=== PATIENT | male | born 1945 | race Caucasian/White ===

== ENCOUNTER → 2018-05-16 13:12 | Outpatient (POV) | payer MEDICARE, OTHER, SELFPAY | PROVIDERS: PCP Pediatrics; Visit Provider Specialist | DX: M62.81 Muscle weakness (generalized) (principal); E11.42 Type 2 diabetes mellitus with diabetic polyneuropathy | CPT/HCPCS: 95886; 95909 ==

== ENCOUNTER → 2018-11-24 14:02 | Outpatient (CLI) | payer MEDICARE, OTHER, SELFPAY ==
[2018-11-24 14:45] LABS: Basophils % 0.5 % (0.1-2.0); Eosinophils # 0.1 K/mm3 (0.0-0.4); Eosinophils % 2.2 % (0.1-12.0); Hematocrit 46.4 % (42.0-52.0); Hemoglobin 15.7 g/dL (14.1-18.0); Lymphocytes # 2.1 K/mm3 (0.7-4.5); Lymphocytes % 40.1 % (10-50); Mean Corpuscular HGB Conc 33.8 g/dL (31.8-35.4); Mean Corpuscular Hemoglobin 30.8 pg (27.0-31.2); Mean Corpuscular Volume 91.2 fl (80-94); Mean Platelet Volume 7.8 fl (7.4-10.4); Monocytes # 0.3 K/mm3 (0.1-1.0); Monocytes % 6.1 % (1.7-9.3); Neutrophils # 2.7 K/mm3 (1.8-7.8); Neutrophils % 51.1 % (37.0-80.0); Platelet Count 203 K/mm3 (142-424); Red Blood Count 5.08 M/mm3 (4.60-6.20); Red Cell Distribution Width 14.4 % (11.5-17.5); White Blood Count 5.3 K/mm3 (4.8-10.8)
[2018-11-24 15:26] LABS: Anion Gap 20.3 mEq/L (5-15); Blood Urea Nitrogen 28 mg/dL (7-18); Calcium 9.7 mg/dL (8.5-10.1); Carbon Dioxide 21 mmol/L (21.0-32.0); Chloride 105 mmol/L (98-107); Creatinine,Serum 1.24 mg/dL (0.70-1.30); Estimated Glomerular Filt Rate 57 ml/min (>60); GFR (African American) 69 ML/MIN (>60); Glucose 245 mg/dL (74-106); Potassium 4.3 mmoL/L (3.5-5.1); Sodium 142 mmol/L (136-145)
== END ==
PROVIDERS: Visit Provider Otolaryngology
DX: Z01.818 Encounter for other preprocedural examination (principal); L98.9 Disorder of the skin and subcutaneous tissue, unspecified
CPT/HCPCS: 36415; 80048; 85025; 93005

== ENCOUNTER 2018-12-09 06:04 | Day surgery (SDC) | payer MEDICARE, OTHER, SELFPAY ==
[2018-12-09 06:18] VITALS: BMI 33.7
[2018-12-09 06:19] VITALS: BP 151/62; PULSE 91; RESP 18; TEMP 36.6; O2SAT 94
[2018-12-09 06:44] LABS: POC Glucose,Bedside 148 (70-110)
--- NOTE | 2018-12-09 07:32 | P.PN_ITS ---
[facility] Anesthesia Checklist - Patient Identification Patient Identification: Arm Band, Verbal (Name & ) - Structural Data Admitted From: Home Planned Operative Procedure/s: excision lesion Consent for Planned Operative Procedure(s) Verified: Yes Verified Documents: History and Physical - NPO Status Verified Time NPO: 00:00 - Additional verifications Patient : No Anesthesia Reactions: No Hx Blood Transfusions: No Blood Transfusion Reaction: No Cephalosporin Allergy: No Previous Colonoscopy: Yes - Cardiovascular Assessment Heart Sounds: S1 & S2 Pulse Strength: Baseline Pulse Rhythm: Regular Peripheral Edema: No - Airway Assessment C-Spine Mobility Assessed: Yes TMJ Mobility Assessed: Yes Dentition: Good Dentition - Neurological Assessment Level of Consciousness: Awake, Alert, Appropriate Hx Seizures: No Numbness or tingling in extremities: No - Anesthesia Plan Anesthesia Risk discussed: Yes Anesthesia Plan: Verified ASA Class: III Anesthesia Type: MAC [facility] History I have reviewed the patient's past medical history: Yes Medical History: Reports:: Cancer (PROSTATE CANCER), Diabetes Mellitus Type 2, Hyperlipidemia, Hypertension Denies:: Diabetes Mellitus Type 1, Internal Pacemaker, MRSA, Seizures *Have you ever received a pneumonia vaccine?: Yes *Have you received a flu vaccine this season?: Yes Other Medical History: Denies: Blood Transfusion Reaction Other Surgeries: Yes: No Previous Surgery, Open Heart Surgery, Other. No: Pacemaker Amputation: No Fractures: No - *Social History Educational Level: Completed High School Smoking Status: Former smoker #Yrs smoked (if former smoker): 2 Smoking End Date: 1966 Alcohol Intake: never Alcohol Intake Frequency:: other *Occupational Status:: retired Housing: house Household Members: spouse *Travel in the last 8 weeks: None - Psychiatric History Expresses thoughts of harming self/others: None Suicide Plan Description: No Plan Family Hx:: Cancer
[2018-12-09 08:38] VITALS: BP 118/58; PULSE 73; RESP 18; TEMP 36.1; O2SAT 96
[2018-12-09 08:53] VITALS: BP 112/57; PULSE 66; RESP 18; TEMP 36.1; O2SAT 94
[2018-12-09 09:08] VITALS: BP 108/62; PULSE 70; RESP 18; TEMP 36.1; O2SAT 95
[2018-12-09 09:22] VITALS: BP 114/57; PULSE 70; RESP 18; TEMP 36.1; O2SAT 95
--- NOTE | 2018-12-09 09:25 | HMH.OPNOTE ---
Date of procedure: 12/09/18 Pre-op Diagnosis:: Malignant neoplasm right upper neck 4.5 cm Post-op Diagnosis:: same Procedure performed:: Excision of malignant neoplasm skin right upper neck with the tissue arrangement geometric plastic repair Surgeon:: Pepito Beebe MD DISTRICT DIRECTOR:: Darius Jimenez Anesthesia: MAC Estimated blood loss (mL): 3 Operative findings:: same Operative note:: The right neck was prepped and draped, the eyes were protected with Steri-Strips. The perilesional area was infiltrated with 5 cc of 2% lidocaine containing epinephrine. The lesion was marked out and the markup measured 4.5 cm in length. The edwin-out was incised and the lesion was excised and submitted. Bleeding was stopped with bipolar cautery. Bloodloss was less than 10 cc. The lesion extended deep into the subcutaneous layer, anterior and posterior incisions were made and a tissue rearrangement geometric plastic repair was done with interrupted 4-0 nylon sutures. Dermabond dressing was applied and the patient was sent to recovery in good general condition. Condition: stable Disposition: PACU Complications:: none
--- NOTE | 2018-12-09 09:29 | P.OP_ITS ---
Date of procedure: 12/09/18 Pre-op Diagnosis:: Malignant neoplasm right upper neck 4.5 cm Post-op Diagnosis:: same Procedure performed:: Excision of malignant neoplasm skin right upper neck with the tissue arrangement geometric plastic repair Surgeon:: Pepito Beebe MD MEDICAL RECORDS SPECIALIST:: Darius Jimenez Anesthesia: MAC Estimated blood loss (mL): 3 Operative findings:: same Operative note:: The right neck was prepped and draped, the eyes were protected with Steri- Strips. The perilesional area was infiltrated with 5 cc of 2% lidocaine containing epinephrine. The lesion was marked out and the markup measured 4.5 cm in length. The edwin-out was incised and the lesion was excised and submitted. Bleeding was stopped with bipolar cautery. Bloodloss was less than 10 cc. The lesion extended deep into the subcutaneous layer, anterior and posterior incisions were made and a tissue rearrangement geometric plastic repair was done with interrupted 4-0 nylon sutures. Dermabond dressing was applied and the patient was sent to recovery in good general condition. Condition: stable Disposition: PACU Complications:: none
== END 2018-12-09 09:22 | disposition home or self-care (01) ==
LOC: OR 06:06
PROVIDERS: PCP Pediatrics; Visit Provider Otolaryngology
DX: L85.8 Other specified epidermal thickening; L82.1 Other seborrheic keratosis; E11.9 Type 2 diabetes mellitus without complications
CPT/HCPCS: 14040; 82962; 88305; 96374; 96375

== ENCOUNTER 2020-03-02 07:11 | Observation (INO) | payer MEDICARE, SELFPAY ==
[2020-03-02] VITALS (23 sets, daily range): BP systolic 110–165; BP diastolic 60–86; PULSE 85–129; RESP 16–20; TEMP 36.2–37.8; O2SAT 90–98; BMI 33.5; BMI 33.6
[2020-03-02 07:42] LABS: Basophils % 0.2 % (0.1-2.0); Eosinophils # 0.1 K/mm3 (0.0-0.4); Eosinophils % 0.9 % (0.1-12.0); Hematocrit 43.7 % (42.0-52.0); Hemoglobin 15.2 g/dL (14.1-18.0); Lymphocytes # 1.6 K/mm3 (0.7-4.5); Mean Corpuscular HGB Conc 34.7 g/dL (31.8-35.4); Mean Corpuscular Hemoglobin 31.7 pg (27.0-31.2); Mean Corpuscular Volume 91.4 fl (80-94); Mean Platelet Volume 7.9 fl (7.4-10.4); Monocytes # 0.6 K/mm3 (0.1-1.0); Monocytes % 4.9 % (1.7-9.3); Neutrophils # 9.8 K/mm3 (1.8-7.8); Platelet Count 196 K/mm3 (142-424); Red Blood Count 4.78 M/mm3 (4.60-6.20); Red Cell Distribution Width 14.2 % (11.5-17.5); White Blood Count 12.1 K/mm3 (4.8-10.8)
--- NOTE | 2020-03-02 07:45 | HMH.EDNVD ---
ED Disposition Clinical Impression: Right foot drop, Obesity (BMI 30.0-34.9), S/P CABG (coronary artery bypass graft) Acute appendicitis Qualifiers: Acute appendicitis type: unspecified acute appendicitis type Qualified Code(s): K35.80 - Unspecified acute appendicitis Diabetes, polyneuropathy Qualifiers: Diabetes mellitus type: type 2 Qualified Code(s): E11.42 - Type 2 diabetes mellitus with diabetic polyneuropathy Disposition: Admitted As Inpatient Condition on Discharge: Good Instructions: DI for Acute Abdomen Referrals: Gaudencio Aiken [Primary Care Provider] - - Critical Care Critical Care Time: No Attestation: On 03/02/20, the high probability of a clinically significant, sudden or life threatening deterioration of the following system(s) required my full and direct attention, intervention and personal management. The time I documented below is in addition to time spent performing reported procedures but includes the following listed in this critical care notation. Medical Decision Making - Medical Records Medical records reviewed: Yes: I reviewed the patient's medical records. - Fredis Inquiry Pt receiving controlled substance: No Vital Signs: 03/02/20 07:12 03/02/20 07:49 Temperature 99.5 F Temperature Source Oral Pulse Rate [Left Radial] 97 H 85 Respiratory Rate 16 Blood Pressure [Right Arm] 156/74 H 165/80 H Blood Pressure Mean [Right Arm] 101 108 Blood Pressure Source [Right Arm] Automatic Cuff Blood Pressure Position [Right Arm] Sitting Sitting 02 Sat by Pulse Oximetry 97 94 L Oxygen Delivery Method Room Air Room Air - Lab Data Lab Results 03/02/20 07:33: WBC 12.1 H, RBC 4.78, Hgb 15.2, Hct 43.7, MCV 91.4, MCH 31.7 H, MCHC 34.7, RDW 14.2, Plt Count 196, MPV 7.9, Neut % (Auto) 81.0 H, Lymph % (Auto) 13.0, [place] % (Auto) 4.9, Eos % (Auto) 0.9, Baso % (Auto) 0.2, Neut # (Auto) 9.8 H, Lymph # (Auto) 1.6, [place] # (Auto) 0.6, Eos # (Auto) 0.1, Baso # (Auto) 0.0 03/02/20 07:33: Sodium 139, Potassium 3.9, Chloride 101, Carbon Dioxide 22, Anion Gap 19.9 H, BUN 19, Creatinine 1.10, Estimated Creat Clear 80, Estimated GFR 66, Est GFR ( Amer) 79, Glucose 161 H, Calcium 9.8, Total Bilirubin 0.6, AST 31, ALT 41, Alkaline Phosphatase 61, Total Protein 8.1, Albumin 4.8, Globulin 3.3 H, Albumin/Globulin Ratio 1.5 03/02/20 07:33: Amylase 162 H, Lipase 61 03/02/20 07:43: Urine Color Dk yellow, Urine Appearance Clear, Urine pH 7.0, Ur Specific [place] 1.020, Urine Protein 1+, Urine Glucose (UA) Negative, Urine Ketones Trace, Urine Blood Negative, Urine Nitrate Negative, Urine Bilirubin Negative, Urine Urobilinogen 1.0, Ur Leukocyte Esterase Negative, Urine RBC 3-5, Urine WBC 3-5, Ur Squamous Epith Cells Occasional, Urine Bacteria Trace, Urine Mucus Trace Result diagrams: 03/02/20 07:33 03/02/20 07:33 Orders (Tests/Meds): ED MEDICATIONS Generic Name Dose Route Start Last Admin Trade Name Freq PRN Reason Stop Dose Admin Sodium Chloride 1,000 mls @ 999 mls/hr 03/02/20 07:30 03/02/20 07:32 Sod Chlor 0.9% 1000ml Bag IV 03/02/20 08:30 999 mls/hr .Q1H1M TALIA Administration ORDERS Category Date Time Status CT abdomen pelvis wo con Stat Cat Scan 03/02/20 07:47 Taken - CT Data CT Scan: Abdomen, Pelvis Time Received: 08:[address] Reviewed: Yes: I have viewed the radiologist's interpretation Preliminary Findings: Abnormal (appendicitis) Nausea/Vomiting/Diarrhea HPI - General Chief complaint: Abdominal Pain Stated complaint: Pain in [place] stomach\ Time Seen by Provider: 03/02/20 07:30 Mode of Arrival: Ambulatory Source of Information: Patient, Spouse, Medical Record Limitations: No Limitations Description of Symptoms (Recalled from ER Triage Doc. by RN): to ed per pvt car with c/o rlq abd pain x 3 weeks became worse lastnight. denies nausea, vomiting, fever states pain worse with movement. pt states he had abd xrays several days ago . - History of Present Illness HPI Narrati
[2020-03-02 07:46] LABS: Microscopic, Urine URINE MICROSCOPIC (MICROSCOPIC)
--- NOTE | 2020-03-02 07:47 | CT_ITS ---
Procedure: CT ABDOMEN PELVIS WO CON Patient Age:74Y CLINICAL INDICATION: ABD PAIN right-sided lower abdominal pain becoming severe since last night COMPARISON: No exams were available for comparison TECHNIQUE: No IV contrast. No oral contrast Helical axial images obtained with sagittal and coronal reformats. All CT scans at the facility use one or more dose reduction, viz: automated exposure control, ma/kV adjustment per patient size (including targeted exams where dose is matched to indication, i.e. head), or iterative reconstruction technique. FINDINGS: Mild dependent atelectasis lung bases the mild chronic changes posterior lung bases . Upper normal wall thickness distal esophagus with small sliding hiatal hernia. Abdomen pelvis : lack of oral and IV contrast decrease sensitivity somewhat Liver,spleen, adrenals unremarkable. Cholelithiasis noted: 6 mm stone dependent portion the gallbladder (axial image 34) question other very tiny gravel-like stones adjacent. No gallbladder wall thickening nor inflammation.Common duct normal this is the the the the the is Pancreas satisfactory: (Note elev amylase lab but pancreas unremarkable by ct) tract: Kidneys/ureter. No hydronephrosis or current obstruction Left kidney: Nonobstructing calculus mid portion left kidney measuring up to 7 mm x 4 mm. Stranding surrounding both kidneys most likely chronic in nature. Ureters unremarkable. Urinary bladder wall thickening most likely due to its markedly contracted state. No significant free fluid at pelvic basin. No pelvic nor inguinal nor retroperitoneal adenopathy note small fat containing hernia right. No bowel Loops no definite free air in the abdomen. GI tract. : ACUTE APPENDICITIS: dilated appendix measures 13 mm diameter. Surrounding Carine appendiceal hazy stranding and inflammation throughout periappendiceal fat. There is a 7.5 mm appendiculith at the base of the appendix where it meets the cecum; which could be a contributor to the the current acute appendicitis No focal abscess. No discrete free air. No prep perforation. Small inguinal hernia on right noted and questionably developing left. No bowel loops associated either side Lymph nodes: No enlarged lymph nodes apparent. Vasculature: No evidence of abdominal aortic aneurysm. Diffuse calcified abdominal aorta Bones: No acute fracture developing degenerative changes lower spine IMPRESSION: 1.. ACUTE APPENDICITIS Dilated appendix with periappendiceal stranding and inflammation . Associated appendicolith. No abscess; no perforation. 2. Incidental other observations: . Cholelithiasis . Left renal calculus, nonobstructive . Sigmoid diverticulosis ; no diverticulitis . Small fat containing inguinal hernia on right, Dictated by: Jasper Koch MD 03/02/2020 10:51 Electronically signed by Jasper Koch MD in [place] 03/02/2020 10:51
[2020-03-02 07:49] LABS: Chloride 101 mmol/L (98-107); Potassium 3.9 mmoL/L (3.5-5.1); Sodium 139 mmol/L (136-145)
[2020-03-02 07:49] LABS: Appearance,Urine CLEAR (Clear); Blood, Urine Negative (Negative); Color,Urine DK YELLOW (Yellow); Glucose,Urine (UA) Negative (Negative); Ketones,Urine TRACE (Negative); Leukocyte Esterase,Urine Negative (Negative); Nitrate,Urine Negative (Negative); Protein,Urine 1+ (Negative)
[2020-03-02 07:50] LABS: Bilirubin,Urine Negative (Negative)
[2020-03-02 07:51] LABS: Amylase 162 U/L (30-110); Lipase 61 U/L (23-300)
--- NOTE | 2020-03-02 07:51 | PC.NURSE ---
NORMAL SALINE RATE DECREASED TO 100CC/HR
[2020-03-02 07:52] LABS: Alanine Aminotransferase 41 U/L (12-78); Albumin Level 4.8 g/dl (3.5-5.0); Albumin/Globulin Ratio 1.5 (1.1-1.8); Alkaline Phosphatase 61 U/L (38-126); Anion Gap 19.9 mEq/L (5-15); Aspartate Amino Transferase 31 U/L (17-59); Bilirubin,Total 0.6 mg/dl (0.2-1.3); Blood Urea Nitrogen 19 mg/dl (9-20); Calcium 9.8 mg/dl (8.4-10.2); Carbon Dioxide 22 mmol/L (22.0-30.0); Creatinine Clearance Estimated 80 mL/min (50-200); Estimated Glomerular Filt Rate 66 ml/min (>60); GFR (African American) 79 ML/MIN (>60); Globulin 3.3 g/dL (1.3-3.2); Glucose 161 mg/dl (74-100); Total Protein,Serum 8.1 g/dl (6.3-8.2)
--- NOTE | 2020-03-02 07:59 | PC.NURSE ---
Pt to rad.
[2020-03-02 08:16] LABS: Bacteria,Urine Trace /lpf; Mucus,Urine Trace /lpf; Squamous Epithelial Cell,Urine Occasional #/hpf (0-5)
--- NOTE | 2020-03-02 08:29 | PC.NURSE ---
Dr Koch calling to inform ER MD of CT results.
--- NOTE | 2020-03-02 08:40 | PC.NURSE ---
oil recovery unit operator paging dr. nelson who is injection press operator for surger
--- NOTE | 2020-03-02 08:49 | XR_ITS ---
PROCEDURE: XR CHEST PORTABLE CLINICAL INDICATION: pre-op Heart disease COMPARISON: No exams were available for comparison FINDINGS: Prior CABG with mild cardiomegaly without CHF. There are low lung volumes. Clear lungs. No acute bony findings. IMPRESSION: Cardiomegaly, prior CABG Dictated by: Bon Hernandez MD 03/02/2020 09:35 Electronically signed by Bon Hernandez MD in [place] 03/02/2020 09:35
--- NOTE | 2020-03-02 08:52 | ECG_ITS ---
APPROVED REPORT Exam: Resting ECG HR:91 bpm ECG Measurements Heart Rate 91 AXES NJ 162 P 24 QRSd 90 QRS -9 QT 334 T 145 QTc 410 <Conclusion> Sinus rhythm with occasional premature ventricular complexes Left ventricular hypertrophy with repolarization abnormality Abnormal ECG Electronically signed by : Darius Sandoval, 03/02/2020 16:51:37
--- NOTE | 2020-03-02 08:55 | PC.NURSE ---
rad at bedside
--- NOTE | 2020-03-02 08:55 | PC.NURSE ---
Surgeon probation manager returned call
--- NOTE | 2020-03-02 08:56 | PC.NURSE ---
rad at BS for portable chest xray
--- NOTE | 2020-03-02 08:58 | PC.NURSE ---
ZIYAD TEAGUE spoke with Dr Chapin who is networks software consultant for surgery, states to give pt Invanz 1g IV now and he will plan to do surgery at 1030-11.
--- NOTE | 2020-03-02 09:16 | PC.NURSE ---
Per Dr Altamirano's discussion with surgeon showroom salesperson surgery will be around 10:30 or 11 this date.
--- NOTE | 2020-03-02 09:16 | PC.NURSE ---
Dr Esteves contacted in reference to possible surgery. per Dr Esteves tentatively plan for surgery between 11-1130am. OR team Curtis lamb Shellie, and Ingrid returned calls at 0914 and 0915
--- NOTE | 2020-03-02 09:16 | HMH.HP ---
*Admission Date: 03/02/20 *Chief complaint: abd pain *History of present illness: this pt presented to the ed with progressive rt lower abd pain since midnight with nausea and abd distention- no fever or vomiting and no cough - no exposure to covid 19- hx of diabetes and cad with prev cabg but no recent angina - [facility] History I have reviewed the patient's past medical history: Yes Medical History: Reports:: Cancer, Diabetes Mellitus Type 2, Hyperlipidemia, Hypertension Denies:: Diabetes Mellitus Type 1, Internal Pacemaker, MRSA, Seizures *Have you ever received a pneumonia vaccine?: Yes *Have you received a flu vaccine this season?: Yes Other Medical History: Denies: Blood Transfusion Reaction Other Surgeries: Yes: No Previous Surgery, CABG (4 vessel bypass ), Cardiac Surgery, Colonoscopy, Open Heart Surgery, Other (prostate surgery, and a bipass). No: Pacemaker Amputation: No Fractures: No - *Social History Smoking Status: Former smoker #Yrs smoked (if former smoker): 2 Alcohol Intake: never Alcohol Intake Frequency:: other Substance Use Type: denies use *Occupational Status:: other Housing: other Household Members: other *Travel in the last 8 weeks: None Family Hx:: Cancer (prostate cancer ), Hypertension, Hyperlipidemia, Diabetes Review of Systems - Review of Systems Review of systems:: pertinent systems reviewed and negative unless documented below - Constitutional Denies fever(s) - Eyes Denies change in vision - ENT Reports dry mouth, Denies sore throat - *Cardiovascular Denies chest pain at rest, Denies shortness of breath - *Respiratory Denies cough - *Gastrointestinal Reports abdominal pain, Reports nausea - *Genitourinary Denies painful urination - *Musculoskeletal Denies joint pain - Integumentary/Breasts Denies rash - *Neurologic Denies localized weakness, Denies seizure-like activity - Psychiatric Denies anxiety Meds Home Medications Medication Instructions Recorded Confirmed Type aspirin 81 mg tablet,delayed 81 mg PO DAILY 04/11/18 03/02/20 History release gemfibrozil 600 mg tablet 600 mg PO BID 04/11/18 03/02/20 History imipramine HCl 25 mg tablet 25 mg PO QHS 04/11/18 03/02/20 History metoprolol tartrate 100 mg tablet 100 mg PO BID 04/11/18 03/02/20 History omeprazole 40 mg capsule,delayed 40 mg PO DAILY 04/11/18 03/02/20 History release pravastatin 40 mg tablet 40 mg PO DAILY 04/11/18 03/02/20 History albuterol sulfate 90 mcg/actuation 1 puff INHALATION NEEDED PRN 06/20/18 03/02/20 History aerosol inhaler budesonide-formoterol HFA 160 2 puff INHALATION DAILY 11/24/18 03/02/20 History mcg-4.5 mcg/actuation aerosol inhaler glipizide 5 mg tablet 5 mg PO BID 11/24/18 03/02/20 History linaclotide 145 mcg capsule 145 mcg PO DAILY 11/24/18 03/02/20 History loratadine 10 mg capsule 10 mg PO DAILY 11/24/18 03/02/20 History losartan 25 mg tablet 25 mg PO DAILY 11/24/18 03/02/20 History C,E,Zinc,Copper 11/Rtxqu2j/Lut 1 tab PO DAILY 12/09/18 03/02/20 History [Ocuvite Adult 50 Plus Softgel] Cholecalciferol (Vitamin D3) 400 unit PO DAILY 12/09/18 03/02/20 History [Vitamin D-400] Multivitamin [Multivitamins] 1 each PO DAILY 12/09/18 03/02/20 History metformin 750 mg tablet,extended 1,000 mg PO BID tab 01/12/19 03/02/20 History release 24 hr nifedipine 60 mg tablet,extended 60 mg PO BID #60 tab 04/21/19 03/02/20 Rx release Allergies Allergy/AdvReac Type Severity Reaction Status Date / Time No Known Allergies Allergy Verified 04/13/19 11:06 Exam Vital signs and Labs for Last 24 Hours: Temp Pulse Resp BP Pulse Ox 99.5 F 94 H 16 148/67 H 94 L 03/02/20 07:12 03/02/20 09:15 03/02/20 07:12 03/02/20 09:15 03/02/20 09:15 Laboratory Results - last 24 hr 03/02/20 07:33: WBC 12.1 H, RBC 4.78, Hgb 15.2, Hct 43.7, MCV 91.4, MCH 31.7 H, MCHC 34.7, RDW 14.2, Plt Count 196, MPV 7.9, Neut % (Auto) 81.0 H, Lymph % (Auto) 13.0, [place] % (Auto
--- NOTE | 2020-03-02 09:16 | PC.NURSE ---
ATTEMPTED TO CALL REPORT TO FLOOR NURSE STATES SHE IS BUSY WITH AN PT AND ASKED IF SHE COULD CALL BACK.
--- NOTE | 2020-03-02 09:27 | PC.NURSE ---
DR. SORENSEN REQUESTED IV ANTIBIOTICS NOW.
--- NOTE | 2020-03-02 09:27 | PC.NURSE ---
REPORT CALLED TO GABY MORELOS
[2020-03-02 09:45] LABS: Coronavirus 19 IgG Antibody Negative (Negative); Coronavirus 19 IgM Antibody Negative (Negative)
[2020-03-02 11:40] LABS: POC Glucose,Bedside 130 (70-110)
--- NOTE | 2020-03-02 12:06 | HMH.GSCON ---
*Admission Date: 03/02/20 *Reason for consult:: Right lower quadrant abdominal pain. Appendicitis. *History of present illness: Mr. Pereira is a 74-year-old male that presents to [facility] with complaints of right lower quadrant abdominal pain for approximately 12 hours. Sudden onset. No nausea or emesis. No fever or chills. No hematochezia or melena. Pain has remained in the right lower quadrant without radiation. Persistent. Intense. No other significant complaints. CT imaging completed as part of the [facility] ED evaluation. Findings consistent with appendicitis. Admitted to floor with known history of diabetes mellitus and previous coronary artery disease. Review of Systems - Constitutional Reports fatigue - *Respiratory Reports shortness of breath with activity - *Gastrointestinal Reports abdominal pain - *Genitourinary Reports difficulty urinating - *Neurologic Denies localized weakness, Denies seizure-like activity [facility] History I have reviewed the patient's past medical history: Yes Medical History: Reports:: Cancer, Coronary Artery Disease, Diabetes Mellitus Type 2, Hyperlipidemia, Hypertension Denies:: Diabetes Mellitus Type 1, Internal Pacemaker, MRSA, Seizures *Have you ever received a pneumonia vaccine?: Yes *Have you received a flu vaccine this season?: Yes Other Medical History: Reports: Radiation Therapy. Denies: Blood Transfusion Reaction Other Surgeries: Yes: No Previous Surgery, CABG (4 vessel bypass ), Cancer Surgery, Cardiac Surgery, Colonoscopy, Open Heart Surgery, Other (prostate surgery, and a bipass). No: Pacemaker Amputation: No Fractures: No - *Social History Smoking Status: Former smoker #Yrs smoked (if former smoker): 2 Alcohol Intake: never Alcohol Intake Frequency:: other Substance Use Type: denies use *Occupational Status:: disabled Housing: other Household Members: other *Travel in the last 8 weeks: None Family Hx:: Cancer (prostate cancer ), Hypertension, Hyperlipidemia, Diabetes Meds Home Medications Medication Instructions Recorded Confirmed Type aspirin 81 mg tablet,delayed 81 mg PO DAILY 04/11/18 03/02/20 History release gemfibrozil 600 mg tablet 600 mg PO BID 04/11/18 03/02/20 History imipramine HCl 25 mg tablet 25 mg PO QHS 04/11/18 03/02/20 History metoprolol tartrate 100 mg tablet 100 mg PO BID 04/11/18 03/02/20 History omeprazole 40 mg capsule,delayed 40 mg PO DAILY 04/11/18 03/02/20 History release pravastatin 40 mg tablet 40 mg PO DAILY 04/11/18 03/02/20 History albuterol sulfate 90 mcg/actuation 1 puff INHALATION NEEDED PRN 06/20/18 03/02/20 History aerosol inhaler budesonide-formoterol HFA 160 2 puff INHALATION DAILY 11/24/18 03/02/20 History mcg-4.5 mcg/actuation aerosol inhaler glipizide 5 mg tablet 5 mg PO BID 11/24/18 03/02/20 History losartan 25 mg tablet 25 mg PO DAILY 11/24/18 03/02/20 History C,E,Zinc,Copper 11/Ncnoq5r/Lut 1 tab PO DAILY 12/09/18 03/02/20 History [Ocuvite Adult 50 Plus Softgel] Cholecalciferol (Vitamin D3) 400 unit PO DAILY 12/09/18 03/02/20 History [Vitamin D-400] Multivitamin [Multivitamins] 1 each PO DAILY 12/09/18 03/02/20 History metformin 750 mg tablet,extended 1,000 mg PO BID tab 01/12/19 03/02/20 History release 24 hr nifedipine 60 mg tablet,extended 60 mg PO BID #60 tab 04/21/19 03/02/20 Rx release Famotidine 40 mg PO DAILY 03/02/20 03/02/20 History Allergies Allergy/AdvReac Type Severity Reaction Status Date / Time No Known Allergies Allergy Verified 04/13/19 11:06 Exam Vital signs and Labs for Last 24 Hours: Temp Pulse Resp BP Pulse Ox 99 F 88 18 132/74 92 L 03/02/20 10:46 03/02/20 10:46 03/02/20 10:46 03/02/20 10:46 03/02/20 10:02 Laboratory Results - last 24 hr 03/02/20 07:33: WBC 12.1 H, RBC 4.78, Hgb 15.2, Hct 43.7, MCV 91.4, MCH 31.7 H, MCHC 34.7, RDW 14.2, Plt Count 196, MPV 7.9, Neut % (Auto) 81.0 H, Lymph %
--- NOTE | 2020-03-02 13:29 | HMH.OPNOTE ---
Date of procedure: 03/02/20 Pre-op Diagnosis:: Acute appendicitis. Post-op Diagnosis:: Acute appendicitis. Procedure performed:: Laparoscopic appendectomy. Surgeon:: Leonid Esteves MD PHARMACEUTICAL COMPOUNDING SUPERVISOR:: Curtis Reeves Anesthesia: GETA Estimated blood loss (mL): 0 Operative findings:: Acutely inflamed appendix. Operative note:: Indications: Mr. Pereira is a 74-year-old male that presents to [facility] with complaints of right lower quadrant abdominal pain. Clinical examination and CT imaging consistent with acute appendicitis. No evidence of rupture. Scheduled for laparoscopic appendectomy. All risks benefits goals and alternatives were discussed with Mr. Pereira. Patient agreed to above-stated procedures. Findings: Acutely inflamed appendix. Perforation at the mid appendix with minimal contamination. Details of procedure: Patient was prepped identified. Consent obtained. Patient brought to the operating room. Transferred to the operating room table. General endotracheal anesthesia was administered. Abdomen was prepped and draped standard surgical fashion. Midline incision was made above the umbilicus. Abdominal cavity was entered without difficulty. A 12 mm trocar was placed in the supraumbilical position. Abdomen insufflated. Two 5mm trochars were placed in the lower abdomen. A dense band between the omentum and the anterior abdominal wall was taken down with harmonic scalpel. The appendix was visualized. Grasped. Perforation of the mid appendix was noted with minimal contamination. A window was created in the mesoappendix at the base of the appendix. The appendix was then divided at its base with an Endo ADAM stapler. Mesentery was divided with harmonic scalpel. Appendix delivered to an Endobag. Retrieved through the supraumbilical port site. Right lower quadrant was irrigated. No evidence of bleeding. No evidence of staple line dehiscence. This completed procedure. Patient tolerated well. Patient drainage the postanesthetic area without surgical or anesthetic complication. Specimens as above. Complications none. Condition: stable Disposition: PACU Complications:: None.
--- NOTE | 2020-03-02 13:30 | HMH.ANESCL ---
[facility] Anesthesia Checklist - Patient Identification Patient Identification: Arm Band, Verbal (Name & ) - Structural Data Admitted From: Inpatient Planned Operative Procedure/s: Laparoscopic appendectomy Consent for Planned Operative Procedure(s) Verified: Yes Verified Documents: Surgical Consent, History and Physical - NPO Status Verified Time NPO: 00:00 - Chart Verification Results Verified: CBC, BMP - Additional verifications Anesthesia Reactions: No Hx Blood Transfusions: No Blood Transfusion Reaction: No - Airway Assessment C-Spine Mobility Assessed: Yes (Limited neck ROM, thick neck, MP 3, TMD 3) TMJ Mobility Assessed: Yes Dentition: Poor Dentition (missing teeth) - Neurological Assessment Level of Consciousness: Awake, Alert, Appropriate, Follows Commands Hx Seizures: No Numbness or tingling in extremities: Yes (Neuropathy post CABG) - Anesthesia Plan Anesthesia Risk discussed: Yes Anesthesia Plan: Verified ASA Class: III (Emergent) Anesthesia Type: General [facility] History I have reviewed the patient's past medical history: Yes Medical History: Reports:: Cancer, Coronary Artery Disease, Diabetes Mellitus Type 2, Hyperlipidemia, Hypertension Denies:: Diabetes Mellitus Type 1, Internal Pacemaker, MRSA, Seizures *Have you ever received a pneumonia vaccine?: Yes *Have you received a flu vaccine this season?: Yes Other Medical History: Reports: Radiation Therapy. Denies: Blood Transfusion Reaction Anesthesia experience/problems:: Difficulty oxygenating post anesthesia S/P CABG (ventilator for 9 days) Other Surgeries: Yes: CABG (4 vessel bypass ), Cancer Surgery, Cardiac Surgery, Colonoscopy, Open Heart Surgery, Other (prostate surgery, and a bipass). No: Pacemaker Amputation: No Fractures: No - *Social History #Yrs smoked (if former smoker): 2 Alcohol Intake: never Alcohol Intake Frequency:: other Substance Use Type: denies use *Occupational Status:: disabled Housing: other Household Members: other *Travel in the last 8 weeks: None Family Hx:: Cancer (prostate cancer ), Hypertension, Hyperlipidemia, Diabetes
--- NOTE | 2020-03-02 13:38 | HMH.ANESI ---
[facility] Anesthesia Record Part I Intake, IV Amount: 1,000 Estimated blood loss (mL): 20 Urine output (mL): 100 Blood Products used (#): none Blood Pressure: 145/76 SaO2: 94 Pulse Rate: 96 Respiratory Rate: 18 Temperature: 97.1 F Patient is:: Drowsy, Mask O2, Stable Stable to PACU at:: 13:25
[2020-03-02 14:18] LABS: Microscopic,Cath URINE MICROSCOPIC (MICROSCOPIC)
[2020-03-02 14:20] LABS: Appearance,Urine/Cath CLEAR (Clear); Bilirubin,Cath Negative (Negative); Blood, Urine/Cath 1+ (Negative); Color,Urine/Cath YELLOW (Yellow); Glucose,Urine/Cath (UA) Negative (Negative); Ketones,Urine/Cath Negative (Negative); Leukocyte Esterase,Cath Negative (Negative); Nitrate,Cath Negative (Negative); PH,Urine/Cath 7.5 (5.0-8.5); Protein,Urine/Cath TRACE (Negative); Urobilinogen,Cath 0.2 EU/dl (0.2)
[2020-03-02 14:30] LABS: Bacteria,Urine/Cath TRACE /lpf
[2020-03-02 16:54] LABS: POC Glucose,Bedside 207 (70-110)
--- NOTE | 2020-03-02 17:29 | PC.NURSE ---
pt has done well since post op appy. pt came from pacu on 3L nc to get him to his baseline. pt now on ra with o2 sats ranging from 91-93%. pt ambulated up to chair. done well. pt educated on pain control and infection to incisions. pt has 3 incisions to abd, the top on has a small amount of sanguineous drainage, had when pt arrived to floor, no more noted. vss. will cont. to monitor.
--- NOTE | 2020-03-02 20:45 | PC.NURSE ---
placed pt on 1.5 lnc at this time. ra o2 sat noted at 88%. pt denies soa. no respiratory distress noted at this time. pt is now 92% on 1.5 lnc. will continue to monitor and attempt to wean back to ra if tolerated.
[2020-03-02 21:37] LABS: POC Glucose,Bedside 163 (70-110)
--- NOTE | 2020-03-02 23:25 | PC.NURSE ---
TITRATED O2 DOWN TO 1 LNC AT THIS TIME. 02 SATS NOTED AT 92% ON 1LNC. NO RESPIRATORY DISTRESS NOTED. DENIES SOA.
--- NOTE | 2020-03-03 00:29 | PC.NURSE ---
PT TOLERATED CLEAR LIQUID DIET WELL FOR DINNER. WILL ADVANCE TO FULL LIQUID DIET FOR BREAKFAST THIS AM. PT DENIES N/V/D.
[2020-03-03 01:00] VITALS: BP 133/68; PULSE 98; RESP 18; TEMP 36.9; O2SAT 92
--- NOTE | 2020-03-03 01:19 | PC.NURSE ---
CHANGED DSG TO UPPER MIDDLE INCISION DUE TO MODERATE SATURATION OF PAD AND TELFA. PT TOLERATED DSG CHANGE WELL WITH NO COMPLAINTS. INCISION NOTED C/D/I.
[2020-03-03 04:00] VITALS: BP 130/63; PULSE 104; RESP 30; TEMP 37.8; O2SAT 90
--- NOTE | 2020-03-03 04:04 | PC.NURSE ---
A&O X4. PT HAS INTERMITTENTLY RESTED WITH EYES CLOSED T/O SHIFT. PT INSISTED ON SLEEPING IN CHAIR AT BEDSIDE INSTEAD OF THE BED. REMAINED AT BEDSIDE T/O SHIFT. NO ACUTE CHANGES NOTED FROM PREVIOUS SHIFT. DSG CHANGED ON UPPER MIDDLE INCISION. MODERATE SEROSANG DRAINAGE NOTED. INCISION NOTED C/D/I. ABD NOTED DISTENDED. NO BM THUS FAR THIS SHIFT. PT C/O DAVIS AT BEGINNING OF SHIFT. THIS RN ADMIN TYLENOL PER OCT. UPON REASSESSMENT PT STATED ADEQUATE RELIEF. THIS AM, PT REPORTS WITH MOVEMENT FROM CHAIR HIS ABDOMEN IS VERY SORE. RATING PAIN 4/10 ON PAIN SCALE. ADMINISTERED TYLENOL PER OCT. WILL REASSESS IN 30 MINS POST ADMIN. PT NOW ON 1.5 LNC THIS AM. RA SAT NOTED AT 86% AND 90% ON 1 LNC. NO RESPIRATORY DISTRESS NOTED. TOLERATING 1.5 LNC WELL WITH O2 SATS NOTED AT 93% AT THIS TIME. USE OF URINAL AT BEDSIDE. URINE NOTED DARK YELLOW AND CLEAR IN COLOR. VSS WITH TACHYCARDIA NOTED. MD AWARE. PT STATES HIS BASELINE HR IS 90-100 AND THAT HIS PCP IS AWARE. REMAINS SAFE. REFUSED TEDS. CALL LIGHT WITHIN REACH. WILL CONTINUE TO MONITOR.
[2020-03-03 05:00] VITALS: BMI 33.8
[2020-03-03 05:27] LABS: POC Glucose,Bedside 140 (70-110)
[2020-03-03 07:11] LABS: Basophils % 0.1 % (0.1-2.0); Eosinophils % 0.2 % (0.1-12.0); Lymphocytes # 1.1 K/mm3 (0.7-4.5); Mean Corpuscular HGB Conc 34.8 g/dL (31.8-35.4); Mean Corpuscular Hemoglobin 31.9 pg (27.0-31.2); Mean Corpuscular Volume 91.5 fl (80-94); Mean Platelet Volume 8.3 fl (7.4-10.4); Monocytes # 0.3 K/mm3 (0.1-1.0); Monocytes % 4.2 % (1.7-9.3); Neutrophils # 5.7 K/mm3 (1.8-7.8); Neutrophils % 79.5 % (37.0-80.0); Platelet Count 152 K/mm3 (142-424); Red Blood Count 3.93 M/mm3 (4.60-6.20); Red Cell Distribution Width 14.6 % (11.5-17.5); White Blood Count 7.1 K/mm3 (4.8-10.8)
[2020-03-03 07:15] LABS: Hemoglobin 12.5 g/dL (14.1-18.0)
[2020-03-03 07:19] LABS: Anion Gap 13.3 mEq/L (5-15); Blood Urea Nitrogen 16 mg/dl (9-20); Carbon Dioxide 24 mmol/L (22.0-30.0); Chloride 105 mmol/L (98-107); Creatinine Clearance Estimated 81 mL/min (50-200); Estimated Glomerular Filt Rate 66 ml/min (>60); GFR (African American) 79 ML/MIN (>60); Glucose 121 mg/dl (74-100); Potassium 3.3 mmoL/L (3.5-5.1); Sodium 139 mmol/L (136-145)
[2020-03-03 07:22] LABS: Calcium 8.2 mg/dl (8.4-10.2)
[2020-03-03 08:27] VITALS: BP 158/75; PULSE 99; RESP 17; TEMP 36.8; O2SAT 89
--- NOTE | 2020-03-03 10:06 | HMH.DCSUM ---
General - General Admission date:: 03/02/20 Discharge date: 03/03/20 HPI HPI: this pt presented to the ed with progressive rt lower abd pain since midnight with nausea and abd distention- no fever or vomiting and no cough - no exposure to covid 19- hx of diabetes and cad with prev cabg but no recent angina - Hospital Course Hospital Course: pt has surg yesterday-Acute appendicitis. Clinical abdominal examination and CT imaging consistent with acute appendicitis. Focal right lower quadrant tenderness with peritonitis. Invanz 1 g antibiotics has been administered in the preoperative period. All risks, benefits, goals, and alternatives have been discussed. Plan at this time is to proceed forward with laparoscopic appendectomy. Known history of coronary artery disease and diabetes mellitus. Likely will require 23-hour observation. Known history of prostate surgery. Urinary retention has been discussed. Intraoperative Black catheter will be placed. Proceed as above. te appendicitis. Post-op Diagnosis:: Acute appendicitis. Procedure performed:: Laparoscopic appendectomy. Surgeon:: Leonid Esteves MD NETWORK OPERATIONS ANALYST:: Curtis Reeves Anesthesia: GETA Estimated blood loss (mL): 0 Operative findings:: Acutely inflamed appendix. Operative note:: Indications: Mr. Pereira is a 74-year-old male that presents to [facility] with complaints of right lower quadrant abdominal pain. Clinical examination and CT imaging consistent with acute appendicitis. No evidence of rupture. Scheduled for laparoscopic appendectomy. All risks benefits goals and alternatives were discussed with Mr. Pereira. Patient agreed to above-stated procedures. Findings: Acutely inflamed appendix. Perforation at the mid appendix with minimal contamination. Details of procedure: Patient was prepped identified. Consent obtained. Patient brought to the operating room. Transferred to the operating room table. General endotracheal anesthesia was administered. Abdomen was prepped and draped standard surgical fashion. Midline incision was made above the umbilicus. Abdominal cavity was entered without difficulty. A 12 mm trocar was placed in the supraumbilical position. Abdomen insufflated. Two 5mm trochars were placed in the lower abdomen. A dense band between the omentum and the anterior abdominal wall was taken down with harmonic scalpel. The appendix was visualized. Grasped. Perforation of the mid appendix was noted with minimal contamination. A window was created in the mesoappendix at the base of the appendix. The appendix was then divided at its base with an Endo ADAM stapler. Mesentery was divided with harmonic scalpel. Appendix delivered to an Endobag. Retrieved through the supraumbilical port site. Right lower quadrant was irrigated. No evidence of bleeding. No evidence of staple line dehiscence. This completed procedure. Patient tolerated well. Patient drainage the postanesthetic area without surgical or anesthetic complication. pt demanded to go home today - i feel he should stay as he has possible volume overload and low grade temp this am - he insists on going home - will ask pt to call pcp or me in am - Objective Vital signs: Temp Pulse Resp BP Pulse Ox 98.3 F 99 H 17 158/75 H 89 L 03/03/20 08:27 03/03/20 08:27 03/03/20 08:27 03/03/20 08:27 03/03/20 08:27 no acute distress, obese - *Routine HEENT Exam Head: Present: normocephalic Eye: Present: EOMI, PERRL ENT: Present: mucous membranes dry - *Routine Neck Exam Present: supple - *Routine Respiratory Exam Present: decreased breath sounds - *Routine Cardiovascular Exam Present: RRR, murmur, S4 - *Routine Abdominal Exam Present: soft Comments: incision sites clear - *Routine Extremities Exam Present: edema. Absent: calf tenderness - *Routine Skin Exam Present: intact - *Routine Neurological Exam Present: alert, oriented X
--- NOTE | 2020-03-03 10:42 | HMH.ANESII ---
[facility] Anesthesia Record Part II Discharge Time: 13:55 Destination: Medical Surgical Department PACU nurse assessment reviewed?: Yes Patient Condition:: Good Anesthesia Complications:: None Swallowing reflex intact?: Yes Cyanosis?: No Blood Pressure: 133/64 Pulse Rate: 98 Temperature: 97.5 F Mental Status: Alert & Oriented (drowsy) Pain level:: 0 Nausea and/or vomitting:: None Intake, IV Amount: 0 (Normovolemic)
[2020-03-03 10:44] VITALS: BP 133/64; PULSE 98; TEMP 36.4
--- NOTE | 2020-03-03 10:48 | PC.NURSE ---
PT SIGNED AMA FORM, PER MD ORDERS. MD STATED HE STILL PUTTING IN DC ORDER BUT WANTED AMA SIGNED TOO. PT EDUCATED AND ADVISED OF ALL POSSIBLE RISK TO LEAVING AMA. PT EDUCATED ON CALLING PCP FOR FOLLOW UP APPT. EDUCATED ON SURGICAL SITE INFECTION, S/S OF INFECTION.
== END 2020-03-03 10:55 | disposition left against medical advice (07) ==
LOC: ER 08:49 → 2ND 11:53
PROVIDERS: Surgery; Admitting Provider Emergency Medicine; Emergency Provider Emergency Medicine; PCP Pediatrics; Visit Provider Emergency Medicine
PROC: 0DTJ4ZZ Resection of Appendix, Percutaneous Endoscopic Approach (ICD-10-PCS; CPT 44970; principal; 2020-03-02 11:45)
DX: K35.32 Acute appendicitis with perforation, localized peritonitis, and gangrene, without abscess (principal); E11.42 Type 2 diabetes mellitus with diabetic polyneuropathy; M21.371 Foot drop, right foot; Z95.1 Presence of aortocoronary bypass graft; I25.10 Atherosclerotic heart disease of native coronary artery without angina pectoris; I10 Essential (primary) hypertension; Z79.84 Long term (current) use of oral hypoglycemic drugs; Z79.82 Long term (current) use of aspirin; Z87.891 Personal history of nicotine dependence
CPT/HCPCS: 44970; 71045; 74176; 80048; 80053; 81001; 82150; 82962; 83690; 85025; 86328; 87086; 88304; 93005; 96365; 96367; 96375; 99285; G0378; J0131; J1335; J2405

== ENCOUNTER → 2020-04-05 10:35 | Outpatient (CLI) | payer MEDICARE, SELFPAY ==
--- NOTE | 2020-04-05 10:45 | CT_ITS ---
PROCEDURE: CT ABDOMEN PELVIS W CON CLINICAL INDICATION: APPENDICITIS Continued right lower quadrant pain status post appendectomy COMPARISON: CT CT ABDOMEN PELVIS WO CON from 03/02/2020 TECHNIQUE: IV Contrast: 75ML OPTIRAY 350 Oral Contrast None Axial images obtained with sagittal and coronal reformats. All CT scans at the facility use one or more dose reduction, viz: automated exposure control, ma/kV adjustment per patient size (including targeted exams where dose is matched to indication, i.e. head), or iterative reconstruction technique. FINDINGS: LOWER THORAX: There are mild atelectatic changes in the lung bases. The ABDOMEN & PELVIS: There is mild fatty liver infiltration. There is a small gallstone noted. The spleen, adrenal glands, and pancreas have an unremarkable appearance. There is a nonobstructing 5 mm stone in the mid polar region of the left kidney. Status post appendectomy. There is some minimal stranding of the fat in the right lower quadrant posterior to the cecum consistent with postsurgical changes. There is no evidence of abscess intestinal obstruction or free air. There is colonic diverticulosis but no evidence of diverticulitis. No abdominal wall hernia is evident. There is some mild small bowel wall thickening and enhancement in the right lower quadrant. This is diffuse and could be due to mild enteritis. Urinary bladder is contracted with mild thickening of the urinary bladder wall. There are degenerative changes of the lumbar spine IMPRESSION: 1. Status post appendectomy with postsurgical changes in the pericecal region. No evidence of abscess. 2. Mild thickening of the small bowel in the lower abdomen and right lower quadrant which could be related to enteritis. No intestinal obstruction or free air. 3. Cholelithiasis and left nephrolithiasis Dictated by: Bon Hernandez MD 04/05/2020 12:10 Bon Hernandez MD in OV 04/05/2020 12:10
[2020-04-05 10:56] LABS: Blood Urea Nitrogen 23 mg/dl (9-20); Estimated Glomerular Filt Rate 59 ml/min (>60); GFR (African American) 72 ML/MIN (>60)
== END ==
PROVIDERS: PCP Pediatrics; Visit Provider Surgery
DX: K37 Unspecified appendicitis (principal)
CPT/HCPCS: 36415; 74177; 82565; 84520; Q9967

== ENCOUNTER → 2020-07-16 09:44 | Outpatient (POV) | payer MEDICARE, SELFPAY | PROVIDERS: Visit Provider Otolaryngology | DX: Z00.00 Encounter for general adult medical examination without abnormal findings (principal) ==

== ENCOUNTER → 2023-02-22 09:33 | Outpatient (POV) | payer MEDICARE, SELFPAY ==
--- NOTE | 2023-02-22 09:51 | EXP.PAIN.OV ---
HPI Data of Consult Patient: new to practice Consult date: 02/22/23 Requesting Physician: Milena Reynoso APRN Primary Care Provider: Gaudencio Aiken Consult Narrative Reason for consult: Low back pain, bilateral leg pain History of present illness: Mr. Pereira is a 77 year old male who presents today as a new patient. He is a referral from Dr. Gaudencio Aiken's office. Today he rates his pain a 5 out of 10. He states his pain is all in his low back with radiating symptoms into his bilateral lower extremities. He states this has been going on for more than 4 months and is unrelated to any specific injury or trauma. He does describe it as an aching sensation with numbness and pain into his legs. He states he does feel like his legs go to sleep and frequently deals with charley horses. He states his legs are both equally affected and does have pain into his bilateral big toes. Patient states that he does do yearly blood work from Dr. Aiken's office. He states the pain does interfere with his ability perform activities of daily living such as cooking and cleaning. Patient does have a significant cardiac history and did have a CABG in the past. He also has residual nerve damage down his right leg related to a skin graft that was done. Patient also has history of diabetes, chronic kidney disease stage III, prostate cancer, sleep apnea, Parkinson's, ATC. Patient denies any previous back surgery. He does state that his A1c has been excellent the last few times with numbers ranging around 5.5 and that he frequently does not check his sugar that often due to how well its been. Patient is scheduled for physical therapy today and this will be his first visit. Patient does also have a history of right foot drop and wears a orthotic in his shoe due to stumbling and difficulty walking. He does use a cane for additional help with ambulation. He does state that he frequently falls into things. patient is not on any scheduled medications. He has tried [id number] medications such as Tylenol along with heat with minimal improvement. He states that when he does have pain he will occasionally take a pain pill such as oxycodone and it will help. He does state that this was a prescription filled by Dr. Aiken sometime ago and that he has 2 sons that were previously addicted to medication and so he rarely takes this. He states he did have lumbar imaging last year done at [facility]. His Fredis is [phone]. Its been reviewed and appropriate. CC: Milena Reynoso APRN [facility] Disclaimer: The information contained in this section may have been updated after the patient was seen, as this information can be updated by other users. Medical History (Updated 02/22/23 @ 11:05 by Milena Reynoso APRN) CKD (chronic kidney disease) COPD (chronic obstructive pulmonary disease) Diabetes GERD (gastroesophageal reflux disease) HLD (hyperlipidemia) HTN (hypertension) Parkinsons disease Prostate cancer Surgical History (Updated 02/22/23 @ 10:03 by Teri Sierra RN) H/O cystoscopy Hx of appendectomy Hx of CABG Hx of CABG Hx of cholecystectomy Hx of tonsillectomy Family History (Updated 02/22/23 @ 10:02 by Teri Sierra RN) Other No significant family history Social History (Updated 02/22/23 @ 10:03 by Teri Sierra RN) Smoking Status: Former smoker pack-years: 2 alcohol intake: never substance use type: denies use current occupational status: disabled Travel in the last 8 weeks: None household members: other housing: other current occupational exposures/hazards: No caffeine: Yes Review of Systems Review of Systems Review of systems:: pertinent systems reviewed and negative unless documented below Review of systems (narrative): Review of Systems: General: No recent weight changes, no fever, no sleep disturbances Respiratory: No cough, no shortness of air, no recurring pulmonary infections [employer]ovas
[2023-02-22 09:59] VITALS: BP 130/53; PULSE 67; RESP 18; O2SAT 97; BMI 33.0
== END ==
LOC: SC.PAIN 09:34
PROVIDERS: PCP Pediatrics; Visit Provider Nurse Practitioner Family
DX: G89.29 Other chronic pain; M51.16 Intervertebral disc disorders with radiculopathy, lumbar region
CPT/HCPCS: 99202; G0463

== ENCOUNTER 2023-03-09 08:57 | Day surgery (SDC) | payer MEDICARE, SELFPAY ==
[2023-03-09 09:11] VITALS: BP 120/55; PULSE 64; RESP 18; TEMP 36.3; O2SAT 94; BMI 34.1
[2023-03-09 09:44] VITALS: BP 128/48; PULSE 58; RESP 18
--- NOTE | 2023-03-09 09:47 | EXP.PAIN.PRO ---
Procedure Date: 03/09/23 Time: 09:25 Anesthesiologist:: Missael Sun CRNA Complications:: None Pre-procedure Diagnosis:: Degenerative disc lumbar spine multilevels. Lumbar radiculopathy. Lumbar spondylosis. Multilevel lumbar facet arthropathy Post-procedure Diagnosis:: Same. Indications for Procedure:: Patient is a very pleasant 77-year-old male comes our clinic today for his initial lumbar epidural steroid injection at the L4-5 level. Patient complains of low back pain as well as bilateral hip and leg radicular symptoms. He rates his pain 6/10. Patient states he has difficulty with ambulation due to increased pain. Patient has difficulty standing due to increased pain. Procedure Details:: Procedure: Lumbar epidural steroid injection under fluoroscopy Informed consent was obtained and the risks and benefits of the procedure were explained to the patient. The patient was taken to the procedure room and noninvasive monitors placed, including noninvasive blood pressure cuff and pulse oximeter. The back was viewed using C-arm Fluoroscopy and prepped using Chloraprep as a cleansing solution and the L4-L5 interspace was palpated. Skin and subcutaneous tissues were anesthetized using lidocaine 1.5% and a 25-gauge needle. After this, an 18-gauge Touhy epidural needle was placed into the L4-L5 interspace and advanced using fluoroscopic guidance and loss of resistance to air until the epidural space was encountered. After confirmation of needle placement in the epidural space, with dye, a solution containing normal saline, 3 mL and Depo-Medrol 80 mg were incrementally injected into the lumbar epidural space. The patient tolerated the procedure well with no complications. The patient was observed in the Pain Clinic and then discharged home neurologically intact. Plan and Disposition:: Patient was discharged without incident.
== END 2023-03-09 09:45 | disposition home or self-care (01) ==
PROVIDERS: PCP Pediatrics; Visit Provider Nurse Anesthetist, Certified Registered
DX: M51.16 Intervertebral disc disorders with radiculopathy, lumbar region (principal); M47.26 Other spondylosis with radiculopathy, lumbar region
CPT/HCPCS: 62323; J1040

== ENCOUNTER → 2023-03-24 13:48 | Outpatient (POV) | payer MEDICARE, SELFPAY ==
[2023-03-24 13:54] VITALS: BP 139/58; PULSE 75; RESP 20; BMI 34.1
--- NOTE | 2023-03-24 14:08 | EXP.PAIN.SOA ---
[facility] Pain Management SOAP Note Subjective:: Patient is a pleasant 77-year-old male who presents today for follow-up of lumbar epidural steroid injection L4-L5. We are currently treating the patient for degenerative disc disease of lumbar spine with lumbar radiculopathy symptoms, low back pain. Today he rates his pain a 0 out of 10. Patient denies any new trauma or injury. He states he has had 100% improvement following this injection and feels like it is still continuing to provide additional relief. Patient states he has been able to increase his activity with decreased pain and feels overall more functional. Patient is not on any scheduled medications. His Fredis is [phone]. This been reviewed and appropriate. Review of Systems: General: No recent weight changes, no fever, no sleep disturbances Respiratory: No cough, no shortness of air, no recurring pulmonary infections Cardiovascular/peripheral vascular: No chest pain, no palpitations, no edema, no shortness of breath Gastrointestinal: No new onset incontinence, normal bowel movements reported Genitourinary: No new onset incontinence Musculoskeletal: Low back pain Psychiatric: [Normal mood/affect] Neurological: [Denies weakness in extremities], [denies balance issues] Objective:: Physical Exam: General: Alert and oriented x3, no acute distress, pleasant and cooperative Lungs: Respirations even and unlabored, symmetrical chest expansion Eyes: PERRL Musculoskeletal: Flexion and extension of lumbar [spine] somewhat guarded secondary to pain, [antalgic gait noted] Neurological: Speech clear, no gross sensory deficit Assessment:: Degenerative disc disease of lumbar spine with lumbar radiculopathy symptoms Plan:: Patient has had significant improvement following his lumbar epidural steroid injection and does not require any additional injective therapy at this time. Patient will return to clinic in 1 month for reevaluation of symptoms and plan of care. Patient has been instructed to contact the clinic with any concerns before the next appointment. Dr. George has reviewed this note and agrees with this plan of care. This note was dictated using voice recognition software and make contain errors or omissions. [facility] Disclaimer: The information contained in this section may have been updated after the patient was seen, as this information can be updated by other users. Medical History CKD (chronic kidney disease) COPD (chronic obstructive pulmonary disease) Diabetes GERD (gastroesophageal reflux disease) HLD (hyperlipidemia) HTN (hypertension) Parkinsons disease Prostate cancer Surgical History H/O cystoscopy Hx of appendectomy Hx of CABG Hx of CABG Hx of cholecystectomy Hx of tonsillectomy Family History Other No significant family history Social History (Updated 03/09/23 @ 09:12 by Sarah Hughes, RN) Smoking Status: Former smoker pack-years: 2 alcohol intake: never substance use type: denies use current occupational status: other Travel in the last 8 weeks: None household members: other housing: other current occupational exposures/hazards: No caffeine: Yes
== END ==
PROVIDERS: PCP Pediatrics; Visit Provider Nurse Practitioner Family
DX: M51.16 Intervertebral disc disorders with radiculopathy, lumbar region (principal)
CPT/HCPCS: 99212; G0463

== ENCOUNTER → 2023-04-23 13:37 | Outpatient (POV) | payer MEDICARE, SELFPAY ==
--- NOTE | 2023-04-23 15:03 | A.OFFVIS_ITS ---
[facility] Pain Management SOAP Note Subjective:: This patient is a very pleasant 77-year-old male that comes our clinic today for follow-up visit after receiving lumbar epidural steroid injection at the L4-5 level. Patient's lumbar epidural was on 03/09/2023. He reports significant improvement 90+ percent in terms of his overall low back pain as well as bilateral hip and leg radicular symptoms. Patient describes his pain as slight, dull, aching at times. He rates his pain 0/10 today. Patient had a recent prescription filled from Dr. Aiken hydrocodone 7.5 mg 1 as needed daily. Patient states he had a prescription such as this from Dr. Aiken in the past. He reports 20 pills lasted him over a year. His Fredis #[id number] has been reviewed and appropriate. Objective:: Patient is awake alert Brohman x3. In no acute distress. Flexion-extension lumbar spine normal. Deep tendon reflexes upper lower extremities normal. Motor strength upper and lower extremities normal. There is no gross sensory deficit. Gait is normal. Assessment:: Degenerative disc lumbar spine multilevels. Lumbar radiculopathy. Lumbar spinal stenosis. Multilevel lumbar facet arthropathy. Lumbar spondylosis Plan:: Patient will return to see us on a as needed basis. [facility] Disclaimer: The information contained in this section may have been updated after the patient was seen, as this information can be updated by other users. Medical History CKD (chronic kidney disease) COPD (chronic obstructive pulmonary disease) Diabetes GERD (gastroesophageal reflux disease) HLD (hyperlipidemia) HTN (hypertension) Parkinsons disease Prostate cancer Surgical History H/O cystoscopy Hx of appendectomy Hx of CABG Hx of CABG Hx of cholecystectomy Hx of tonsillectomy Family History Other No significant family history Social History (Updated 03/09/23 @ 09:12 by Sarah Hughes RN) Smoking Status: Former smoker pack-years: 2 alcohol intake: never substance use type: denies use current occupational status: other Travel in the last 8 weeks: None household members: other housing: other current occupational exposures/hazards: No caffeine: Yes
[2023-04-23 15:16] VITALS: BP 156/67; PULSE 84; RESP 18; O2SAT 93; BMI 33.3
== END ==
PROVIDERS: PCP Pediatrics; Visit Provider Nurse Practitioner Family
DX: M51.16 Intervertebral disc disorders with radiculopathy, lumbar region (principal); M47.26 Other spondylosis with radiculopathy, lumbar region; M48.061 Spinal stenosis, lumbar region without neurogenic claudication
CPT/HCPCS: 99212; G0463

== ENCOUNTER 2023-05-05 15:00 | Outpatient (RCR) | payer MEDICARE, SELFPAY | END 2023-05-05 15:05 | disposition home or self-care (01) | LOC: PT 15:00 | PROVIDERS: PCP Pediatrics; Visit Provider Pediatrics | DX: Z91.81 History of falling (principal); R42 Dizziness and giddiness | CPT/HCPCS: 97110; 97112; 97163; 97164; 97530; 97535 ==

== ENCOUNTER → 2023-05-24 12:41 | Outpatient (CLI) | payer MEDICARE, SELFPAY ==
--- OUTSIDE RECORDS SUMMARY | 2023-05-24 12:44 | XMS_ITS | Clinical Summary ---
Author Name Unknown Address [address] [place] [address] Phone Organization [facility] Address [address] [place] [address] Phone Care Team Providers Care Hot Tar Roofer Helper Name Role Phone Darline TEAGUE, Kory Rashid Unavailable [ ] Conditions or Problems No information available. Medications No information available. Medications Administered No information available. Allergies, Adverse Reactions, Alerts No information available. Results No information available. Plan of Care No information available. Procedures No information available. Vital Signs No information available. Immunizations No information available. Advance Directives No information available.
--- NOTE | 2023-05-24 12:45 | US_ITS ---
FINAL REPORT CLINICAL HISTORY: Claudication, CAD, previous smoker, HTN, hyperlipidemia, hx of CABG COMPARISON: None FINDINGS: ANKLE-BRACHIAL PRESSURE INDICES Pressure indices are as follows: RIGHT LOWER EXTREMITY: Ankle-brachial pressure index: 0.9 Comments: Borderline LEFT LOWER EXTREMITY: Ankle-brachial pressure index: 1.1 Comments: Normal IMPRESSION: Borderline peripheral vascular disease of the right lower extremity. No evidence of peripheral vascular disease of the left lower extremity. Reviewed, Interpreted and Dictated by Oscar Jeronimo III, MD Transcribed by Meme Piña Authenticated and [facility]
--- NOTE | 2023-05-24 12:45 | CA_ITS ---
FINAL REPORT TECHNIQUE: Color Doppler, duplex Doppler and orr scale sonography of the bilateral neck vasculature was performed. Velocities were measured in the carotid arteries. Stenosis evaluation based on velocity criteria. CLINICAL HISTORY: dizziness, CAD, DM, HLD,HTN, CABG, STENTS COMPARISON: None FINDINGS: The peak systolic velocity of the right common carotid artery is 88.3 cm/sec and internal carotid artery 80.1 cm/sec. The diastolic velocity in the internal carotid artery is 25 cm/sec. The ICA/CCA ratio is 1.4. Visually, a small amount of plaque is seen. These findings are consistent with less than 50% stenosis. The external carotid artery is patent. The right vertebral artery is patent with antegrade flow. The peak systolic velocity of the left common carotid artery is 114.6 cm/sec and internal carotid artery 70 cm/sec. The diastolic velocity in the internal carotid artery is 20 cm/sec. The ICA/CCA ratio is 1.24. Visually, a small amount of plaque is seen. These findings are consistent with less than 50% stenosis. The external carotid artery is patent. The left vertebral artery is patent with antegrade flow. IMPRESSION: No evidence of significant carotid stenosis. Bilateral patent vertebral arteries. If indicated, CTA or MRA could further evaluate. Reviewed, Interpreted and Dictated by Oscar Jeronimo III, MD Transcribed by Candy Kasper Authenticated and [facility]
== END ==
PROVIDERS: PCP Pediatrics; Visit Provider Physician Assistant
DX: I25.10 Atherosclerotic heart disease of native coronary artery without angina pectoris (principal); R42 Dizziness and giddiness; I70.213 Atherosclerosis of native arteries of extremities with intermittent claudication, bilateral legs
CPT/HCPCS: 93880; 93923

== ENCOUNTER → 2023-06-23 12:43 | Outpatient (POV) | payer MEDICARE, SELFPAY ==
--- NOTE | 2023-06-23 13:06 | EXP.PAIN.SOA ---
[facility] Pain Management SOAP Note Subjective:: Patient is a pleasant 77-year-old male who presents today for follow-up. We are currently treating the patient for degenerative disc disease of lumbar spine with lumbar radiculopathy symptoms, lumbar facet arthropathy, lumbar spinal stenosis. Today he rates his pain a 7 out of 10. Patient states he has had a recent fall however states he had no lasting injuries or trauma from this. Patient denies getting any imaging done. He does state his pain has slowly came back to its baseline as it was prior to his last lumbar epidural. Patient does describe this as a dull aching sensation that is worse with increased activity. He does state he has numbness and tingling down his bilateral legs. Previously he did have a epidural back in the end of February that provided 90% improvement lasting up until the last couple of weeks. Patient is interested in repeating this injection. Patient has tried and failed conservative therapy such as oral medications, heat and ice, topicals, at home stretching exercise for longer than 12 weeks. Patient does use a cane for help with ambulation. Patient denies any blood thinners other than a baby aspirin. His Fredis has been reviewed and is appropriate. Review of Systems: General: No recent weight changes, no fever, no sleep disturbances Respiratory: No cough, no shortness of air, no recurring pulmonary infections Cardiovascular/peripheral vascular: No chest pain, no palpitations, no edema, no shortness of breath Gastrointestinal: No new onset incontinence, normal bowel movements reported Genitourinary: No new onset incontinence Musculoskeletal: Low back pain, bilateral leg pain Psychiatric: [Normal mood/affect] Neurological: [Denies weakness in extremities], [denies balance issues] Objective:: Physical Exam: General: Alert and oriented x3, no acute distress, pleasant and cooperative Lungs: Respirations even and unlabored, symmetrical chest expansion Eyes: PERRL Musculoskeletal: Flexion and extension of lumbar [spine] somewhat guarded secondary to pain, [antalgic gait noted] Neurological: Speech clear, no gross sensory deficit Assessment:: Degenerative disc disease of lumbar spine with lumbar radiculopathy symptoms, lumbar facet arthropathy, lumbar spinal stenosis Plan:: Patient is experiencing worsening pain in his low back and legs with limited range of motion. I have discussed with the patient that he may benefit from a repeat lumbar epidural steroid injection. Risk and benefits were discussed with the patient and he would like to proceed forward with this plan of care. Patient is not on any blood thinners. Patient will be scheduled for an LESI L4-L5. His last epidural did provide 90% improvement lasting approximately 3 months. Patient has been instructed to contact the clinic with any concerns before the next appointment. Dr. George has reviewed this note and agrees with this plan of care. This note was dictated using voice recognition software and make contain errors or omissions. [facility] Disclaimer: The information contained in this section may have been updated after the patient was seen, as this information can be updated by other users. Medical History (Updated 05/17/23 @ 13:39 by Luca Santo RN) CAD (coronary artery disease) CKD (chronic kidney disease) Claudication COPD (chronic obstructive pulmonary disease) Diabetes Dizziness GERD (gastroesophageal reflux disease) HLD (hyperlipidemia) HTN (hypertension) Parkinsons disease Prostate cancer Surgical History H/O cystoscopy Hx of appendectomy Hx of CABG Hx of CABG Hx of cholecystectomy Hx of tonsillectomy Family History Other No significant family history Social History Smoking Status: Former smoker alcohol intake: never substance use type: de
[2023-06-23 14:27] VITALS: BP 132/55; PULSE 74; RESP 18; O2SAT 93; BMI 33.3
== END ==
PROVIDERS: PCP Pediatrics; Visit Provider Nurse Practitioner Family
DX: M51.16 Intervertebral disc disorders with radiculopathy, lumbar region (principal); M47.26 Other spondylosis with radiculopathy, lumbar region
CPT/HCPCS: 99212; G0463

== ENCOUNTER → 2023-06-24 14:34 | Outpatient (CLI) | payer MEDICARE, SELFPAY ==
[2023-06-24 14:56] LABS: Basophils % 0.8 % (0.1-2.0); Eosinophils # 0.2 K/mm3 (0.0-0.4); Eosinophils % 3.3 % (0.1-12.0); Hemoglobin 14.8 g/dL (14.1-18.0); Lymphocytes # 1.6 K/mm3 (0.7-4.5); Lymphocytes % 32.5 % (10-50); Mean Corpuscular HGB Conc 35.2 g/dL (31.8-35.4); Mean Corpuscular Hemoglobin 32.7 pg (27.0-31.2); Mean Corpuscular Volume 92.9 fl (80-94); Mean Platelet Volume 8.6 fl (7.4-10.4); Monocytes # 0.3 K/mm3 (0.1-1.0); Monocytes % 5.6 % (1.7-9.3); Neutrophils # 2.8 K/mm3 (1.8-7.8); Neutrophils % 57.8 % (37.0-80.0); Platelet Count 210 K/mm3 (142-424); Red Blood Count 4.52 M/mm3 (4.60-6.20); Red Cell Distribution Width 14.4 % (11.5-17.5); White Blood Count 4.8 K/mm3 (4.8-10.8)
[2023-06-24 15:40] LABS: Alanine Aminotransferase 38 U/L (12-78); Albumin Level 4.7 g/dl (3.5-5.0); Alkaline Phosphatase 64 U/L (38-126); Aspartate Amino Transferase 39 U/L (17-59); Bilirubin,Direct 0.2 mg/dl (0.0-0.4); Bilirubin,Indirect 0.2 mg/dL (0.0-0.9); Bilirubin,Total 0.4 mg/dl (0.2-1.3); Bilirubin,Unconjugated 0.2 mg/dL (0.0-1.1); Blood Urea Nitrogen 23 mg/dl (9-20); Calcium 9.8 mg/dl (8.4-10.2); Carbon Dioxide 24 mmol/L (22.0-30.0); Chloride 103 mmol/L (98-107); Chol/HDL Ratio 6.1 (1-3.5); Cholesterol 140 mg/dl (140-200); Estimated Glomerular Filt Rate 59 ml/min (>60); GFR (African American) 71 ML/MIN (>60); Glucose 130 mg/dl (74-100); HDL Cholesterol 23 mg/dl (40-60); Magnesium 1.7 mg/dl (1.6-2.3); Sodium 141 mmol/L (136-145); Total Protein,Serum 7.6 g/dl (6.3-8.2); Triglycerides 266 mg/dl (30-150); VLDL Cholesterol 53 mg/dL (0-40)
[2023-06-24 15:57] LABS: Free T4 (Free Thyroxine) 1.05 ng/dl (0.78-2.19)
[2023-06-24 15:59] LABS: Direct LDL Cholesterol 69.41 mg/dL (100-129)
[2023-06-24 16:11] LABS: Thyroid Stimulating Hormone 2.78 uIU/mL (0.465-4.68)
== END ==
PROVIDERS: PCP Pediatrics; Visit Provider Nurse Practitioner
DX: E11.42 Type 2 diabetes mellitus with diabetic polyneuropathy (principal); I10 Essential (primary) hypertension; I25.10 Atherosclerotic heart disease of native coronary artery without angina pectoris; Z95.1 Presence of aortocoronary bypass graft; Z79.84 Long term (current) use of oral hypoglycemic drugs; Z79.899 Other long term (current) drug therapy
CPT/HCPCS: 36415; 80048; 80061; 80076; 83735; 84439; 84443; 85025

== ENCOUNTER 2023-07-02 10:44 | Day surgery (SDC) | payer MEDICARE, SELFPAY ==
[2023-07-02 10:59] VITALS: BP 115/47; PULSE 67; RESP 18; TEMP 36.6; O2SAT 92; BMI 33.7
[2023-07-02 12:00] VITALS: BP 133/52; PULSE 69; RESP 16; O2SAT 92
--- NOTE | 2023-07-02 12:48 | EXP.PAIN.PRO ---
Procedure Date: 07/02/23 Time: 12:48 Anesthesiologist:: Goldy George MD Complications:: None Pre-procedure Diagnosis:: Degenerative disc disease of lumbar spine with lumbar radiculopathy symptoms Post-procedure Diagnosis:: Same Indications for Procedure:: The patient is a pleasant 77-year-old white male who we are treating for low back pain with lumbar radiculopathy symptoms. He has increasing pain in his back radiating down his legs. He has done very well with these injections his last 1 was at the end of February. He gets approximately 80 to 90% relief for 3 months. We will do a repeat lumbar epidural steroid injection under fluoroscopy today. Procedure Details:: Informed consent was obtained and the risk and benefits of the procedure was explained to the patient. The patient was taken to the procedure room. The patient was placed prone on the procedure table. The patient was prepped and draped in sterile fashion. C-arm fluoroscopy was used to view the lumbar spine. Skin and subcutaneous tissues were anesthetized using lidocaine. I placed an 18-gauge epidural needle and advanced into the L4-L5 interspace using fluoroscopic guidance and [id number] to air. After confirmation of needle placement in the epidural space with dye I injected 2 mL of lidocaine 1.5% with Depo-Medrol 80 mg. Patient tolerated the procedure well with no complications. Plan and Disposition:: We will follow-up with him in 2 weeks. Will reevaluate symptoms at that time.
== END 2023-07-02 12:00 | disposition home or self-care (01) ==
LOC: SC.PAINP 10:45
PROVIDERS: PCP Pediatrics; Visit Provider Anesthesiology
DX: M51.16 Intervertebral disc disorders with radiculopathy, lumbar region (principal)
CPT/HCPCS: 62323; J1040; Q9966

== ENCOUNTER → 2023-07-05 11:10 | Outpatient (CLI) | payer MEDICARE, SELFPAY ==
--- NOTE | 2023-07-05 | CA_ITS ---
APPROVED REPORT Exam: Pharmacologic Technologist: Kimberly Tierney Ht: 5 ft 5 in Wt: 205 lbs BSA: 2.00 m2 HR: 57 bpm BP: 130/60 mmHg Rhythm: NSR Indications: Shortness of Breath Medical History Medications: Omeprazole,,,,, Aspirin,,,,, Pravastatin,,,,, Metoprolol Tartrate,,,,, Glipizide,,,,, Gemfibrozil,,,,, Multivitamin,,,,, NifEDIPINE,,,,, Metformin ER,,,,, Olemsartan-hctz,,,,, Stress Test Details Test: LEXISCAN HR Resting HR: 57 bpm Max Heart Rate (APMHR): 144 bpm Max HR Achieved: 86 bpm Target HR (85% APMHR): 122 bpm % of APMHR: 60 Recovery HR: 64 bpm BP Resting BP: 130.0/60.0 mmHg Max BP: 137.0/62.0 mmHg Recovery BP: 133.0/57.0 mmHg ECG Resting ECG: Sinus bradycardia, non-specific T-wave changes in inferolateral leads Stress ECG: No ST changes Arrhythmia: PVCs Clinical Exercise duration: 04:00 min Highest Stage Achieved: Exercise capacity: 1.0 METs Stress ECG Conclusion Symptoms: None Arrhythmias/Ectopy: PVCs ST-T Changes: No significant ST changes Conclusion: Unremarkable Lexiscan stress test. Myoview images are reported separately. Test Summary REST . . . . . . . Resting REST 02:55 . . 57 . 130/ 60 . . Stage 1 . . . . . . . Myoview Injected Stage 1 01:00 . . 63 . . . . Stage 2 01:00 . . 65 . 131/ 60 . . Stage 3 01:00 . . 64 . 132/ 60 . . Stage 4 01:00 . . 67 . 133/ 62 . Stop exercise at 04:00 RECOVERY 01:00 . . 68 . . . . RECOVERY 02:00 . . 68 . 135/ 63 . . RECOVERY 03:00 . . 64 . 137/ 62 . . RECOVERY 03:43 . . 64 . 133/ 57 . . Electronically signed by : Kathryn Peacock MD 07/07/2023 12:34:34
--- NOTE | 2023-07-05 11:11 | NM_ITS ---
APPROVED REPORT Exam: Nuclear Stress Test Indication: CAD, CABG, HTN, DM, HYPERLIPDEMIA, SOB, ABN EKG Patient Location: Outpatient Stress Tech: Kimberly Tierney [place] Tech:Trinity Arreola ASHISHGay RT (R)(N)(M) Ht: 5 ft 5 in Wt: 203 lbs HR: 57 bpm BP: 130/60 mmHg BSA: 1.99 m2 Rhythm: NSR TID: 1.03 BMI: 33.7 History: CAD, CABG, HTN, DM, HYPERLIPDEMIA, SOB, ABN EKG Procedure: Patient received 0.4 mg of intravenous Lexiscan, resting heart rate 57 bpm, resting blood pressure 130/60 mmHg, with Lexiscan maximum heart rate achieved was 86 bpm which is % of the maximum predicted heart rate and blood pressure was 131/62 mmHg. With Lexiscan, patient denied any complaint of chest pain. Cardiac Stress and Resting SPECT Images: Cardiac Stress and Resting SPECT images were obtained using technetium 99m Myoview 31.4 mCi stress and 10.46 mCi at rest. Resting and stress imaging in supine and prone positions demonstrate no evidence of fixed or reversible perfusion defects. Gated imaging demonstrates normal global and regional LV systolic function. LVEF is calculated at 55%. Conclusion: No evidence of fixed or reversible perfusion defects. Gated imaging demonstrates normal global and regional LV systolic function. LVEF is calculated at 55%. Electronically signed by : Kathryn Peacock MD 07/07/2023 12:35:54
--- NOTE | 2023-07-05 13:14 | CA_ITS ---
APPROVED REPORT EXAM: Comprehensive 2D, Doppler, and color-flow Echocardiogram Rn Surgery: RT Marko(R) Ht: 5 ft 5 in Wt: 205lbs BSA: 2.00 BP: 140/63 mmHg Indications: STANTON, CAD, hx CABG, HTN, ex smoker. M-Mode Dimensions RVDd 2.43 cm (0.9-2.6) LVDd 5.47 cm (3.5-5.7) LVDs 4.03 cm (3.5-5.7) IVSd 1.06 cm (0.6-1.1) PWd 0.76 cm (0.6-1.1) EF (Teich) 51.00% FS 26.30% EDV (Teich) 145.60 mL ESV (Teich) 71.30 mL LV Diastology E/A Ratio 1.40 Aortic Valve AO VTI 29.76 (18-25 cm) Mitral Valve MV A Velocity 64.00 (40-130 cm/s) Left Ventricle The left ventricle is normal size. The left ventricular systolic function is normal. The left ventricular ejection fraction is within the normal range. There is normal left ventricular wall thickness. There is normal LV segmental wall motion. The left ventricular diastolic function is normal. LVEF is 55%. Right Ventricle The right ventricle is normal size. The right ventricular systolic function is normal. Atria The left atrium size is normal. The right atrium size is normal. There is no Doppler evidence of interatrial shunt. Aortic Valve The aortic valve is mildly thickened. There is no aortic valvular stenosis. Mild aortic regurgitation. Mitral Valve The mitral valve leaflets are mildly thickened. No evidence of mitral valve stenosis. Trace mitral regurgitation. Tricuspid Valve The tricuspid valve leaflets are thin and pliable. Trace tricuspid regurgitation. There is insufficient TR jet to estimate RVSP. Pulmonic Valve The pulmonary valve is normal in structure. Trace pulmonic regurgitation. Great Vessels The aortic root is normal in size. The ascending aorta is normal in size. IVC is normal in size and collapses >50% with inspiration. Pericardium There is no pericardial effusion. Other Information Study Quality: Fair Conclusion Normal biventricular systolic function. Mild AI. Electronically signed by : Kathryn Peacock MD 07/15/2023 23:42:33
== END ==
LOC: RAD 11:11
PROVIDERS: PCP Pediatrics; Visit Provider Nurse Practitioner
DX: I11.9 Hypertensive heart disease without heart failure (principal); I25.10 Atherosclerotic heart disease of native coronary artery without angina pectoris; Z95.1 Presence of aortocoronary bypass graft; Z87.891 Personal history of nicotine dependence
CPT/HCPCS: 78452; 93017; 93018; 93306; A9502; J2785

== ENCOUNTER → 2023-07-15 08:27 | Outpatient (POV) | payer MEDICARE, SELFPAY ==
--- NOTE | 2023-07-15 08:33 | EXP.PAIN.SOA ---
[facility] Pain Management SOAP Note Subjective:: Patient is a pleasant 77-year-old male who presents today for follow-up lumbar epidural steroid injection L4-L5 on 07/02/2023. We are currently treating the patient for degenerative disc disease of lumbar spine with lumbar radiculopathy symptoms, lumbar facet arthropathy, lumbar spinal stenosis. Today he rates his pain a 0 out of 10. He denies any new injury or trauma. He denies any change location or type of pain he experiences. He states this injection did not provide immediate results like the last 1 did. He states that he did not really notice significant improvement until yesterday. Patient states that he did have at least 50% then and has no issues today. Patient states he was able to move around easier. The last injection he did have provided upwards of 90%. Patient does use a cane for help with ambulation. His Fredis has been reviewed and is appropriate. Review of Systems: General: No recent weight changes, no fever, no sleep disturbances Respiratory: No cough, no shortness of air, no recurring pulmonary infections Cardiovascular/peripheral vascular: No chest pain, no palpitations, no edema, no shortness of breath Gastrointestinal: No new onset incontinence, normal bowel movements reported Genitourinary: No new onset incontinence Musculoskeletal: Low back pain Psychiatric: [Normal mood/affect] Neurological: [Denies weakness in extremities], [denies balance issues] Objective:: Physical Exam: General: Alert and oriented x3, no acute distress, pleasant and cooperative Lungs: Respirations even and unlabored, symmetrical chest expansion Eyes: PERRL Musculoskeletal: Flexion and extension of lumbar [spine] somewhat guarded secondary to pain, [antalgic gait noted] Neurological: Speech clear, no gross sensory deficit Assessment:: Degenerative disc disease of lumbar spine with lumbar radiculopathy symptoms, lumbar facet arthropathy, lumbar spinal stenosis Plan:: At this time the patient is not experiencing any pain or discomfort. I have discussed with patient that if he ends up having worsening pain between now and his next visit he can call us and be seen sooner. Patient will return to clinic in 1 month for reevaluation of symptoms and plan of care. Patient has been instructed to contact the clinic with any concerns before the next appointment. Dr. George has reviewed this note and agrees with this plan of care. This note was dictated using voice recognition software and make contain errors or omissions. PFSH PFSH Disclaimer: The information contained in this section may have been updated after the patient was seen, as this information can be updated by other users. Medical History CAD (coronary artery disease) CKD (chronic kidney disease) Claudication COPD (chronic obstructive pulmonary disease) Diabetes Dizziness GERD (gastroesophageal reflux disease) HLD (hyperlipidemia) HTN (hypertension) Parkinsons disease Prostate cancer Surgical History H/O cystoscopy Hx of appendectomy Hx of CABG Hx of CABG Hx of cholecystectomy Hx of tonsillectomy Family History Other No significant family history Social History Smoking Status: Former smoker alcohol intake: never substance use type: denies use current occupational status: retired Travel in the last 8 weeks: None household members: other housing: other current occupational exposures/hazards: No caffeine: Yes
[2023-07-15 08:37] VITALS: BP 128/59; PULSE 62; RESP 18; O2SAT 95; BMI 33.7
== END ==
PROVIDERS: PCP Pediatrics; Visit Provider Nurse Practitioner Family
DX: M51.16 Intervertebral disc disorders with radiculopathy, lumbar region (principal); M47.26 Other spondylosis with radiculopathy, lumbar region; M48.061 Spinal stenosis, lumbar region without neurogenic claudication
CPT/HCPCS: 99212; G0463

== ENCOUNTER → 2023-08-10 13:02 | Outpatient (POV) | payer MEDICARE, SELFPAY ==
[2023-08-10 13:08] VITALS: BP 114/46; PULSE 71; RESP 18; O2SAT 94; BMI 33.3
--- NOTE | 2023-08-10 13:11 | EXP.PAIN.SOA ---
[facility] Pain Management SOAP Note Subjective:: This patient is a pleasant 78-year-old male returns our clinic today for follow-up visit. However, patient having very little pain if any. Patient states when reaching overhead he has some slight discomfort in the lumbar spine. Otherwise, doing very well. We have been treating him for quite some time for chronic low back pain secondary to degenerative disc, lumbar spondylosis as well as lumbar spinal stenosis. He rates his pain today 0/10. Patient's Fredis #[id number] has been reviewed and appropriate. Patient states he is taking some Tylenol as needed. Objective:: Patient is awake alert [place] x 3. In no acute distress. Flexion-extension lumbar spine somewhat guarded secondary to pain. Deep tendon reflexes upper lower extremities normal. Motor strength upper and lower extremities normal. There is no gross sensory deficit. Gait is antalgic. Requires a cane for stability. Assessment:: Degenerative disc lumbar spine multilevels. Lumbar radiculopathy. Lumbar spinal stenosis. Lumbar facet arthropathy. Lumbar spondylosis. Plan:: I discussed with the patient and his regarding returning to our clinic. We decided he would return as needed. [facility] Disclaimer: The information contained in this section may have been updated after the patient was seen, as this information can be updated by other users. Medical History CAD (coronary artery disease) CKD (chronic kidney disease) Claudication COPD (chronic obstructive pulmonary disease) Diabetes Dizziness GERD (gastroesophageal reflux disease) HLD (hyperlipidemia) HTN (hypertension) Parkinsons disease Prostate cancer Surgical History H/O cystoscopy Hx of appendectomy Hx of CABG Hx of CABG Hx of cholecystectomy Hx of tonsillectomy Family History Other No significant family history Social History Smoking Status: Former smoker alcohol intake: never substance use type: denies use current occupational status: retired Travel in the last 8 weeks: None household members: other housing: other current occupational exposures/hazards: No caffeine: Yes
== END ==
LOC: SC.PAIN 13:03
PROVIDERS: PCP Pediatrics; Visit Provider Nurse Anesthetist, Certified Registered
DX: M51.16 Intervertebral disc disorders with radiculopathy, lumbar region (principal); M48.061 Spinal stenosis, lumbar region without neurogenic claudication; M47.26 Other spondylosis with radiculopathy, lumbar region
CPT/HCPCS: 99212; G0463

== ENCOUNTER 2023-08-17 15:34 | Outpatient (POV) | payer MEDICARE, SELFPAY | END 2023-08-17 23:59 | disposition home or self-care (01) | LOC: SC 15:35 | PROVIDERS: PCP Pediatrics; Visit Provider Dermatology | DX: Z00.00 Encounter for general adult medical examination without abnormal findings (principal) ==

== ENCOUNTER 2024-05-23 11:15 | Outpatient (POV) | payer MEDICARE, SELFPAY | END 2024-05-23 23:59 | disposition home or self-care (01) | LOC: SC 05-24 06:34 | PROVIDERS: Visit Provider Dermatology | DX: Z00.00 Encounter for general adult medical examination without abnormal findings (principal) ==

== ENCOUNTER 2024-09-20 13:48 | Outpatient (CLI) | payer MEDICARE, SELFPAY ==
[2024-09-20 14:19] LABS: Basophils # 0.1 K/mm3 (0-0.2); Basophils % 1.2 % (0.1-2.0); Eosinophils # 0.4 K/mm3 (0.0-0.4); Eosinophils % 6.7 % (0.1-12.0); Hematocrit 42.2 % (42.0-52.0); Hemoglobin 14.3 g/dL (14.1-18.0); Lymphocytes # 1.8 K/mm3 (0.7-4.5); Mean Corpuscular HGB Conc 33.9 g/dL (31.8-35.4); Mean Corpuscular Hemoglobin 30.4 pg (27.0-31.2); Mean Corpuscular Volume 89.6 fl (80-94); Mean Platelet Volume 10.1 fl (7.4-10.4); Monocytes # 0.4 K/mm3 (0.1-1.0); Monocytes % 8.1 % (1.7-9.3); Neutrophils # 2.6 K/mm3 (1.8-7.8); Neutrophils % 49.4 % (37.0-80.0); Platelet Count 221 K/mm3 (142-424); Red Blood Count 4.71 M/mm3 (4.60-6.20); Red Cell Distribution Width 13.3 % (11.5-17.5); White Blood Count 5.2 K/mm3 (4.8-10.8)
[2024-09-20 14:47] LABS: Albumin Level 5.5 g/dl (3.5-5.0); Chloride 100 mmol/L (98-107); Potassium 3.6 mmoL/L (3.5-5.1); Sodium 141 mmol/L (136-145)
[2024-09-20 14:49] LABS: Alanine Aminotransferase 35 U/L (12-78); Anion Gap 15.6 mEq/L (5-15); Aspartate Amino Transferase 38 U/L (17-59); Bilirubin,Unconjugated 0.4 mg/dL (0.0-1.1); Blood Urea Nitrogen 27 mg/dl (9-20); Carbon Dioxide 29 mmol/L (22.0-30.0); Estimated Glomerular Filt Rate 65 ml/min (>60); GFR (African American) 78 ML/MIN (>60)
[2024-09-20 14:50] LABS: Alkaline Phosphatase 81 U/L (38-126); Bilirubin,Direct 0.1 mg/dl (0.0-0.4); Bilirubin,Indirect 0.3 mg/dL (0.0-0.9); Bilirubin,Total 0.4 mg/dl (0.2-1.3); Calcium 9.8 mg/dl (8.4-10.2); Cholesterol 149 mg/dl (140-200); Glucose 170 mg/dl (74-100); HDL Cholesterol 25 mg/dl (40-60); Magnesium 1.7 mg/dl (1.6-2.3); Total Protein,Serum 7.7 g/dl (6.3-8.2); Triglycerides 251 mg/dl (30-150); VLDL Cholesterol 50 mg/dL (0-40)
[2024-09-20 14:58] LABS: NT Pro Brain Natriuretic Pep. 46.9 pg/mL (0-450)
[2024-09-20 15:01] LABS: Direct LDL Cholesterol 67.79 mg/dL (100-129)
[2024-09-20 15:03] LABS: Free T4 (Free Thyroxine) 0.84 ng/dl (0.78-2.19)
[2024-09-20 15:19] LABS: Thyroid Stimulating Hormone 3.01 uIU/mL (0.465-4.68)
== END 2024-09-20 23:59 | disposition home or self-care (01) ==
LOC: LAB 13:49
PROVIDERS: PCP Pediatrics; Visit Provider Nurse Practitioner
DX: R06.00 Dyspnea, unspecified (principal); E78.5 Hyperlipidemia, unspecified; I25.10 Atherosclerotic heart disease of native coronary artery without angina pectoris; E66.811 Obesity, class 1; Z95.1 Presence of aortocoronary bypass graft; R60.9 Edema, unspecified; R06.09 Other forms of dyspnea; I11.9 Hypertensive heart disease without heart failure; I50.9 Heart failure, unspecified; K21.9 Gastro-esophageal reflux disease without esophagitis; Z68.33 Body mass index [BMI] 33.0-33.9, adult
CPT/HCPCS: 36415; 80048; 80061; 80076; 83735; 83880; 84439; 84443; 85025

== ENCOUNTER 2024-09-27 14:46 | Outpatient (CLI) | payer MEDICARE, SELFPAY ==
[2024-09-27 16:25] LABS: Blood Urea Nitrogen 30 mg/dl (9-20); Calcium 10.3 mg/dl (8.4-10.2); Carbon Dioxide 29 mmol/L (22.0-30.0); Chloride 96 mmol/L (98-107); Estimated Glomerular Filt Rate 59 ml/min (>60); GFR (African American) 71 ML/MIN (>60); Glucose 146 mg/dl (74-100); Sodium 140 mmol/L (136-145)
== END 2024-09-27 23:59 | disposition home or self-care (01) ==
LOC: LAB 14:47
PROVIDERS: PCP Pediatrics; Visit Provider Physician Assistant
DX: E78.5 Hyperlipidemia, unspecified (principal); I10 Essential (primary) hypertension
CPT/HCPCS: 36415; 80048

== ENCOUNTER 2024-10-12 13:43 | Outpatient (RCR) | payer MEDICARE, SELFPAY ==
--- NOTE | 2024-10-12 15:51 | HMH.PTOPEV ---
PT Outpatient Evaluation Rehab PT Outpatient Evaluation Start: 10/12/24 13:47 Freq: Status: Active Protocol: Document 10/12/24 13:48 BALJINDER (Rec: 10/12/24 15:50 BALJINDER [id number]) E-signed By Milena Colin, PT Outpatient Therapy Subjective History Subjective History Pt is a 79 y/o male who reports gradual decline in balance and strength. Pt reports he has fallen 3-4 times within the last year, one time being last week. Pt states he is unsure of how he fell but he was getting up from a chair. Pt denies hitting his head or serious injuries from the falls. 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 Pt states he has an AFO but baird not wear it, states he doesn't feel like it helps and it doesn't fit in the shoes he likes to wear. Pt reports he ambulates without an AD for household ambulation although he reaches for furniture. Pt states he uses a SPC for community ambulation although feels like he trips on it and carries it often. Pt reports he has RW but does not want to use it. Pt states he had no choice but to use it recently for 3 days due to weakness and inability to get around. Pt reports he was previously treated for Parkinson's disease but the medication did not help so they took him off of it. Pt reports current functional limitations of inability to drive due to R foot drop, difficulty getting in/out of the car, stair climbing, walking long distances, and walking on uneven terrain [place] without [place]. Medical History: Dizziness, CAD (coronary artery disease), Claudication, COPD (chronic obstructive pulmonary disease) , HTN (hypertension), HLD ( hyperlipidemia), CKD (chronic kidney disease), Prostate cancer, Diabetes, GERD ( gastroesophageal reflux disease) Vitals at rest: SpO2 94% RA, HR 76 bpm 5x sit to stand: 15 without UE support TU with SPC - difficulty sitting to stand initially, and picking up cane throughout gait cycle R ankle AROM: -10 at rest reaching neutral to 0 degrees actively New diagnosis of cancer in past 12 No months? Chief Complaint Weakness Current Functional Limitations Driving,Walking,Stairs,Balance Lumbopelvic Eval Manual Muscle Test Bilateral Knee Extension Strength Grade 5 Normal Knee Flexion Strength Grade 4 Good Hip Flexion Strength Grade 4 Good Hip Abduction Strength Grade 4 Good Hip Adduction Strength Grade 4 Good Hip Extension Strength Grade 4 Good Ankle/Foot Eval ROM right Ankle/Foot Dorsiflexion w/Knee Extended 0 Active Range Motion (degrees) MMT Ankle Dorsiflexion Strength Grade 3+ Fair+ Ankle Plantarflexion Strength Grade 4- Good- Foot Eversion Strength Grade 5 Normal Foot Inversion Strength Grade 5 Normal Balance Eval Subjective Hx of Complaint Comment generalized weakness, altered gait & balance Chief Complaint vertigo No Did you feel dizzy, unsteady or faint? No Hx of Falls Hx Falls Yes Number in last 6 months 4 Gait/Posture Asssessment General Gait Observation Wide Based Gait,Hips Posterior to SATISH Assistive Devices Straight Cane Level of Transfer Assist Independent Ankle/Foot Observation in Gait Swing Decreased Foot Clearance Body Alignment Posture Rigid,Thoracic Kyphosis, Forward Head Timed Up and Go Test 1. Is the Timed Up and Go test result > yes or = to 12 seconds? [place] Feet Together/Eyes open/Stable Surface pass Feet Together/Eyes Closed/Stable Surface pass Feet Together/Eyes open/Unstable Surface fail Feet Together/Eyes Closed/Unstable fail Surface Outpatient Therapy Assessment Impairments Problems/Impairmments Impaired Strength,Impaired Endurance,Impaired Transfers, Impaired Gait Pattern,Impaired Walking,Impaired Standing, Impaired Household Care, Impaired Stair Climbing, Impaired Incline Stepping, Impaired Stepping on Uneven Surface,Impaired Squatting, Impaired Balance,Subjective C/ O Pain,Impaired Self Care/Self Management Prognosis Rehab Potential Good Comment Barriers to progress include chronic R foot drop, pt non- compliant with wear of AFO or use of a RW to decrease fall risk Clinical Impression Consistent with Diagnosis Yes Short Term Goals Number of Weeks 3 Improve Gait Pattern with Assistive Yes: report compliance with Device wear of R AFO to decrease fall risk Improve Self Care/Self Management Yes Patient to be Ind w/ HEP Yes Senior Care Goals Number of Weeks 6 Increase Strength Yes: Improve BLE MMT to 4+-5/5 grossly with exception of R ankle DF Improve Transfers Yes: Improve 5x sit to stand score to 12 or less to decrease fall risk Improve Gait Pattern without Assistive Yes: demonstrate improved gait Device mechanics with LRD to decrease fall risk Improve Ability to Step on Uneven Yes: report ability to descend Surfaces ramp at [place] w/ LRD w/o LOB to dec. fall risk Decrease TUG Time Yes: Improve score to 12 or less to decrease fall risk Outpatient Therapy Plan of Care Treatment Plan May Include Therapeutic Exercise Including Home Yes Exercise Program Manual Therapy Techniques Yes Neuromuscular Re-education Yes Therapeutic Activities to Return to Yes Previous Functional/Work Level Gait Training Yes ADL/Self Care Education Yes Group Therapy for Medicare Yes Eval/Re-Eval Yes Frequency Times per week 2 Duration Number of Weeks 4-6 Addendums This patient is a candidate for social No or vocational rehab? Patient/Guardian verbally acknowledges Yes understanding of treatment program and consents to further treatment? Patient/Guardian verbally acknowledges Yes understanding of diagnosis, prognosis and goals for treatment? Eval Complexity PT Charges 98514 - Moderate Complexity Shoulder/Elbow Eval Shoulder Objective Measurements Elbow Objective Measurements PHYSICIAN CERTIFICATION: I certify the specified therapy services for Harvey Pereira are required, authorized, and reviewed every 30 days.
== END 2024-10-12 23:59 | disposition home or self-care (01) ==
LOC: PT 13:43
PROVIDERS: PCP Pediatrics; Visit Provider Physician Assistant
DX: R53.1 Weakness (principal); R26.89 Other abnormalities of gait and mobility
CPT/HCPCS: 97163

== ENCOUNTER 2024-10-31 13:00 | Outpatient (RCR) | payer MEDICARE, SELFPAY | END 2024-10-31 23:59 | disposition home or self-care (01) | LOC: PT 13:00 | PROVIDERS: Visit Provider Physician Assistant | DX: R53.1 Weakness (principal); R26.89 Other abnormalities of gait and mobility | CPT/HCPCS: 97110; 97112 ==

== ENCOUNTER 2024-12-25 13:52 | Outpatient (CLI) | payer MEDICARE, SELFPAY ==
[2024-12-25 14:55] LABS: Basophils % 0.6 % (0.1-2.0); Eosinophils # 0.2 Kmm3 (0.0-0.4); Eosinophils % 2.6 % (0.1-12.0); Hematocrit 42.9 % (42.0-52.0); Hemoglobin 14.9 g/dL (14.1-18.0); Immature Granulocytes # 0.02 10^3uL; Immature Granulocytes % 0.3 %; Lymphocytes % 32.5 % (10-50); Mean Corpuscular HGB Conc 34.7 g/dL (31.8-35.4); Mean Corpuscular Hemoglobin 30.9 pg (27.0-31.2); Mean Platelet Volume 10.7 fl (7.4-10.4); Monocytes # 0.4 K/mm3 (0.1-1.0); Monocytes % 6.6 % (1.7-9.3); Neutrophils # 3.6 K/mm3 (1.8-7.8); Neutrophils % 57.4 % (37.0-80.0); Nucleated Red Blood Cells # 0 10^3/uL; Nucleated Red Blood Cells % 0 %; Platelet Count 215 K/mm3 (142-424); Red Blood Count 4.82 M/mm3 (4.60-6.20); Red Cell Distribution Width 13.3 % (11.5-17.5); Red Cell Distribution Width-SD 43.3 fL; White Blood Count 6.2 K/mm3 (4.8-10.8)
[2024-12-25 15:40] LABS: Alanine Aminotransferase 44 U/L (12-78); Alkaline Phosphatase 77 U/L (38-126); Aspartate Amino Transferase 44 U/L (17-59); Bilirubin,Direct 0.2 mg/dl (0.0-0.4); Bilirubin,Indirect 0.4 mg/dL (0.0-0.9); Bilirubin,Total 0.6 mg/dl (0.2-1.3); Bilirubin,Unconjugated 0.3 mg/dL (0.0-1.1); Calcium 9.8 mg/dl (8.4-10.2); Chloride 100 mmol/L (98-107); Chol/HDL Ratio 4.6 (1-3.5); Cholesterol 124 mg/dl (140-200); Glucose 164 mg/dl (74-100); HDL Cholesterol 27 mg/dl (40-60); Magnesium 1.7 mg/dl (1.6-2.3); Potassium 3.6 mmoL/L (3.5-5.1); Sodium 137 mmol/L (136-145); Triglycerides 250 mg/dl (30-150); VLDL Cholesterol 50 mg/dL (0-40)
[2024-12-25 15:42] LABS: Albumin Level 5.6 g/dl (3.5-5.0); Anion Gap 14.6 mEq/L (5-15); Blood Urea Nitrogen 41 mg/dl (9-20); Carbon Dioxide 26 mmol/L (22.0-30.0); Estimated Glomerular Filt Rate 53 ml/min (>60); GFR (African American) 65 ML/MIN (>60); Total Protein,Serum 7.6 g/dl (6.3-8.2)
[2024-12-25 15:51] LABS: Direct LDL Cholesterol 60.09 mg/dL (100-129)
[2024-12-25 15:56] LABS: Free T4 (Free Thyroxine) 0.91 ng/dl (0.78-2.19)
[2024-12-25 16:11] LABS: Thyroid Stimulating Hormone 2.28 uIU/mL (0.465-4.68)
== END 2024-12-25 23:59 | disposition home or self-care (01) ==
LOC: LAB 13:52
PROVIDERS: PCP Pediatrics; Visit Provider Nurse Practitioner
DX: I25.10 Atherosclerotic heart disease of native coronary artery without angina pectoris (principal); I10 Essential (primary) hypertension; E78.5 Hyperlipidemia, unspecified; R53.1 Weakness; R26.89 Other abnormalities of gait and mobility; E66.811 Obesity, class 1; Z68.33 Body mass index [BMI] 33.0-33.9, adult; Z95.1 Presence of aortocoronary bypass graft
CPT/HCPCS: 36415; 80048; 80061; 80076; 83735; 84439; 84443; 85025

== ENCOUNTER 2025-01-09 12:56 | Outpatient (CLI) | payer MEDICARE, SELFPAY ==
--- NOTE | 2025-01-09 13:00 | CA_ITS ---
APPROVED REPORT EXAM: Comprehensive 2D, Doppler, and color-flow Echocardiogram Warehouse Order Filler: Juliette Alvarez RT(R) Ht: 5 ft 5 in Wt: 201lbs BSA: 1.98 BP: 137/75 mmHg Indications: dyspnea, COPD, ex smoker, edema, HTN, hyperlipidemia, STANTON, CAD, CABG, YUE 2D Dimensions LA Volume 40.80 mL LA Volume Index 20.61 mL/m2 (M/F) 16-34 M-Mode Dimensions RVDd 3.44 cm (0.9-2.6) LA Diam 3.88 cm (1.9-4.0) LVDd 5.18 cm (3.5-5.7) LVDs 3.82 cm (3.5-5.7) IVSd 0.93 cm (0.6-1.1) PWd 0.76 cm (0.6-1.1) EF (Teich) 51.20% FS 26.30% EDV (Teich) 128.40 mL ESV (Teich) 62.70 mL LV Diastology E Decel Time 180 (160-240 msec) E/A Ratio 1.1 Mitral Valve MV E Max Pratik. 95.0 (40-130 cm/s) MV A Velocity 85.0 (40-130 cm/s) E/A Ratio 1.11 MV PHT 53.0 ms Left Ventricle The left ventricle is normal size. The left ventricular systolic function is normal. The left ventricular ejection fraction is within the normal range. There is increased overall thickness. There is normal LV segmental wall motion. The left ventricular diastolic function is normal. LVEF is 55%. Right Ventricle The right ventricle is normal size. The right ventricular systolic function is normal. Atria Left atrium is moderately dilated. Right atrium is moderately dilated. There is no Doppler evidence of interatrial shunt. Aortic Valve The aortic valve is mildly thickened. There is no aortic valvular stenosis. Mild aortic regurgitation. Mitral Valve The mitral valve is normal in structure. No evidence of mitral valve stenosis. Trace mitral regurgitation. Tricuspid Valve Tricuspid valve is grossly normal in structure and function. Trace tricuspid regurgitation. There is insufficient TR jet to estimate RVSP. Pulmonic Valve The pulmonary valve is normal in structure. Trace pulmonic regurgitation. Great Vessels The aortic root is normal in size. IVC is normal in size and collapses >50% with inspiration. Pericardium There is no pericardial effusion. Other Information Study Quality: Fair Conclusion Normal biventricular systolic function. Biatrial dilation. Mild AI. Electronically signed by : Kathryn Peacock MD 01/15/2025 21:14:39
== END 2025-01-09 23:59 | disposition home or self-care (01) ==
LOC: RT 12:57
PROVIDERS: PCP Pediatrics; Visit Provider Nurse Practitioner
DX: I35.1 Nonrheumatic aortic (valve) insufficiency (principal); I11.9 Hypertensive heart disease without heart failure; E78.5 Hyperlipidemia, unspecified; I25.10 Atherosclerotic heart disease of native coronary artery without angina pectoris; J44.9 Chronic obstructive pulmonary disease, unspecified; G47.33 Obstructive sleep apnea (adult) (pediatric); Z95.1 Presence of aortocoronary bypass graft; Z87.891 Personal history of nicotine dependence
CPT/HCPCS: 93306